=== PATIENT | male | born 1965 | race Caucasian/White ===

== ENCOUNTER 2016-09-13 23:37 | Emergency (ER) | payer MEDICARE, MEDICAID ==
--- NOTE | 2016-09-14 | ED ---
Substance Abuse/Use - HPI Summary HPI Summary: Patient presents for evaluation of acute alcohol intoxication. Patient was at the [facility] and intoxicated so EMS was called. He was drinking to be intoxicated, which he claims to be a near daily occurence. He otherwise feels well. No allev factors attempted. Denies headache, trauma, chest/back/abd pain. - History Of Current Complaint Chief Complaint: EDSubstanceAbuse Stated Complaint: ALCOHOL CONSUMPTION Time Seen by Provider: 09/13/16 23:50 Hx Obtained From: Patient, EMS Timing Of Abuse: Daily Associated Signs And Symptoms: Negative Related Hx: Drug/Alcohol Last Used @ - Prior to arrival - Allergies/Home Medications Allergies/Adverse Reactions: Allergies Allergy/AdvReac Type Severity Reaction Status Date / Time No Known Allergies Allergy Verified 07/10/16 18:21 PMH/Surg Hx/FS Hx/Imm Hx Endocrine/Hematology History: Denies: Hx Diabetes Cardiovascular History: Denies: Hx Congestive Heart Failure, Hx Hypertension Respiratory History: Reports: Hx Asthma, Hx Chronic Obstructive Pulmonary Disease (COPD) GI History: Reports: Hx Gastroesophageal Reflux Disease History: Reports: Other Problems/Disorders - Song cath inserted in ED to monitor urine output post overdose of Vistaril Denies: Hx Renal Disease Musculoskeletal History: Reports: Hx Back Problems - Chronic low back pain Psychiatric History: Reports: Hx Anxiety, Hx Depression, Hx Inpatient Treatment , Hx Community Mental Health Tx, Hx Suicide Attempt, Hx Substance Abuse Denies: Hx Eating Disorder, Hx Panic Disorder, Hx Post Traumatic Stress Disorder, Hx Schizophrenia, Hx of Violent Episodes Against Others - Surgical History Surgery Procedure, Year, and Place: right elbow reconstruction Infectious Disease History: No Infectious Disease History: Denies: Hx Clostridium Difficile, Hx Hepatitis, Hx Human Immunodeficiency Virus (HIV), Hx of Known/Suspected MRSA, Hx Shingles, Hx Tuberculosis, Hx Known/ Suspected VRE, Hx Known/Suspected VRSA, History Other Infectious Disease, Traveled Outside the [place] in Last 30 Days - Family History Known Family History: Positive: None, Unknown, Other - bipolar disorder Family History: Denies family history of heart disease or diabetes. - Social History Alcohol Use: Daily Alcohol Amount: 12 pack tonight Substance Use Type: Reports: None Hx Tobacco Use: Yes - 1 ppd Smoking Status (MU): Heavy Every Day Tobacco Smoker Type: Cigarettes Amount Used/How Often: 1-1.5 ppd Have You Smoked in the Last Year: Yes Review of Systems Constitutional: Negative Negative: Fever, Chills Eyes: Negative Negative: Blurred Vision, Diplopia Cardiovascular: Negative Negative: Chest Pain Respiratory: Negative Negative: Shortness Of Breath Gastrointestinal: Negative Negative: Abdominal Pain All Other Systems Reviewed And Are Negative: Yes Physical Exam Triage Information Reviewed: Yes Vital Signs On Initial Exam: Initial Vitals Temp Pulse Resp BP Pulse Ox 97.2 F 85 20 91/74 92 09/13/16 23:42 09/13/16 23:42 09/13/16 23:42 09/13/16 23:42 09/13/16 23:42 Vital Signs Reviewed: Yes Appearance: Positive: Well-Appearing, No Pain Distress, Well-Nourished Skin: Positive: Warm, Skin Color Reflects Adequate Perfusion, Dry Eyes: Positive: Normal, EOMI, SUSI ENT: Positive: Normal ENT inspection, Hearing grossly normal, Pharynx normal Neck: Positive: Supple, Nontender Respiratory/Lung Sounds: Positive: Clear to Auscultation, Breath Sounds Present Cardiovascular: Positive: Normal, RRR Abdomen Description: Positive: Nontender, No Organomegaly, Soft Musculoskeletal: Positive: Normal, Strength/ROM Intact Neurological: Positive: Normal, Sensory/Motor Intact, Alert, Oriented to Person Place, Time, CN Intact II-III Diagnostics - Vital Signs Vital Signs Temp Pulse Resp BP Pulse Ox 09/13/16 23:42 97.2 F 85 20 91/74 92 - Laboratory Lab Statement: Any lab studies that have been ordered have been reviewed, and results considered in the medical decision making process. Course/Dx - Diagnoses Differential Diagnosis/HQI/PQRI: Positive: Alcohol Abuse, Other - Will re- evaluate later this morning, but is clinically intoxicated and in no acute distress without neuro deficits. [facility] clinically sober. If change to behavior, then CT head for occult ICH. Provider Diagnoses: Alcohol intoxication Discharge - Discharge Plan Condition: Stable Disposition: HOME Patient Education Materials: Alcohol Intoxication (ED) Referrals: Gertrudis Urrutia NP [Primary Care Provider] - If Needed
[2016-09-14] MEDS ORDERED: Al Hydrox/Mg Hydrox/Simet LIQ* 30 ML UDC PO ONE (06:01)
[2016-09-14] MEDS ORDERED: Ondansetron ODT TAB* 4 MG PO ONE (06:01)
[2016-09-14] MEDS ORDERED: Lidocaine 2% VISCOUS* 15 ML UDC PO ONE (06:01)
[2016-09-14 06:18] VITALS: BP 122/64
== END 2016-09-14 06:17 | disposition home or self-care (01) ==
LOC: ED 23:37
DX: F10.129 Alcohol abuse with intoxication, unspecified (principal); F17.210 Nicotine dependence, cigarettes, uncomplicated
CPT/HCPCS: 99282; A9270-GY

== ENCOUNTER 2016-09-15 15:13 | Emergency (ER) | payer MEDICARE, MEDICAID ==
[2016-09-15] MEDS ORDERED: Thiamine IV* 100 MG, Folic Acid IV* 1 MG, Multiple Vitamin IV ADULT* 10 ML in NS 0.9% 1... IV ONE (15:23)
[2016-09-15 16:01] LABS: Hematocrit 41 % (42-52); Hemoglobin 14.1 g/dl (14.0-18.0); Mean Corpuscular HGB Conc 34 g/dl (31-36); Mean Corpuscular Hemoglobin 32 pg (27-31); Mean Corpuscular Volume 94 fL (80-94); Mean Platelet Volume 8 um3 (7.4-10.4); Red Blood Count 4.35 10^6/ul (4.0-5.4); Red Cell Distribution Width 13 % (10.5-15); White Blood Count 10.5 10^3/ul (3.5-10.8)
[2016-09-15 16:06] LABS: Urine Bacteria Absent (Absent); Urine Bilirubin Negative (Negative); Urine Glucose Negative (Negative); Urine Nitrite Negative (Negative)
[2016-09-15 16:48] LABS: Albumin 4.1 g/dL (3.2-5.2); BUN/Creatinine Ratio 6.3 (8-20); Calcium 9.1 mg/dL (8.6-10.3); EGFR African American 132.7 (>60); EGFR Non-African American 103.2 (>60); Globulin 3.2 g/dL (2-4); Potassium 3.6 mmol/L (3.5-5.0); Total Bilirubin 0.4 mg/dL (0.2-1.0); Total Protein 7.3 g/dL (6.4-8.9)
[2016-09-15 17:36] LABS: Benzodiazepine Urine Screen None Detected (None Detect)
[2016-09-15] MEDS ORDERED: LORazepam INJ* 2 MG/ML 1 ML VIAL IV PUSH ONE (17:53)
[2016-09-15 21:25] VITALS: BP 130/75
[2016-09-15] MEDS ORDERED: Ondansetron INJ* 2 MG/ML VIAL IV ONE (23:40)
--- NOTE | 2016-09-15 23:48 | ED ---
Harrison Weber Billy, scribed for Juan Ordaz MD on 09/15/16 at 1605 . Substance Abuse/Use - HPI Summary HPI Summary: Patient is a 50 year-old male coming to [facility] visibly intoxicated. He states that he was trying to visit a rehabilitation clinic in [place] for alcoholism. He reports having had approximately a liter of whisky today. Positive nausea. He was seen in [facility] 2 days ago with a similar complaint. - History Of Current Complaint Chief Complaint: EDPsychosocial Stated Complaint: ETOH Time Seen by Provider: 09/15/16 15:17 Hx Obtained From: Patient Onset/Duration of Drug/ETOH Abuse: Minutes Ingestion History: Type/Name Of Drug - EtOH, Amount Ingested - 1 liter Overdose Characteristics: Oral Timing Of Abuse: Intermittent Severity Initially: Moderate Severity Currently: Moderate Aggravating Factor(s): Nothing Alleviating Factor(s): Nothing Associated Signs And Symptoms: Nausea - Allergies/Home Medications Allergies/Adverse Reactions: Allergies Allergy/AdvReac Type Severity Reaction Status Date / Time No Known Allergies Allergy Verified 07/10/16 18:21 PMH/Surg Hx/FS Hx/Imm Hx Endocrine/Hematology History: Denies: Hx Diabetes Cardiovascular History: Denies: Hx Congestive Heart Failure, Hx Hypertension Respiratory History: Reports: Hx Asthma, Hx Chronic Obstructive Pulmonary Disease (COPD) GI History: Reports: Hx Gastroesophageal Reflux Disease History: Reports: Other Problems/Disorders - Song cath inserted in ED to monitor urine output post overdose of Vistaril Denies: Hx Renal Disease Musculoskeletal History: Reports: Hx Back Problems - Chronic low back pain Psychiatric History: Reports: Hx Anxiety, Hx Depression, Hx Inpatient Treatment , Hx Community Mental Health Tx, Hx Suicide Attempt, Hx Substance Abuse Denies: Hx Eating Disorder, Hx Panic Disorder, Hx Post Traumatic Stress Disorder, Hx Schizophrenia, Hx of Violent Episodes Against Others - Surgical History Surgery Procedure, Year, and Place: right elbow reconstruction Infectious Disease History: No Infectious Disease History: Denies: Hx Clostridium Difficile, Hx Hepatitis, Hx Human Immunodeficiency Virus (HIV), Hx of Known/Suspected MRSA, Hx Shingles, Hx Tuberculosis, Hx Known/ Suspected VRE, Hx Known/Suspected VRSA, History Other Infectious Disease, Traveled Outside the [place] in Last 30 Days - Family History Known Family History: Positive: Other - bipolar disorder Negative: Cardiac Disease, Diabetes - Social History Alcohol Use: Daily Alcohol Amount: 12 pack tonight Substance Use Type: Reports: None Hx Tobacco Use: Yes - 1 ppd Smoking Status (MU): Heavy Every Day Tobacco Smoker Type: Cigarettes Amount Used/How Often: 1-1.5 ppd Have You Smoked in the Last Year: Yes Review of Systems Positive: Nausea Neurological: Other - EtOH intox All Other Systems Reviewed And Are Negative: Yes Physical Exam - Summary Physical Exam Summary: Vital signs: reviewed General: Patient is comfortable lying in stretcher with alcohol in his breath. HEENT: within normal limits Lungs: CTA B/L CVS: S1 & S2 present. No murmurs appreciated. ABDOMEN: Soft, non-tender. No signs of distention. No rebound no guarding, and no masses palpated. Bowel sounds are normal. EXTREMITIES: FROM in all major joints, no edema, no cyanosis or clubbing. NEURO: Alert and oriented x 3. No acute neurological deficits. Speech is normal and follows commands. SKIN: Dry and warm Triage Information Reviewed: Yes Vital Signs On Initial Exam: Initial Vitals Temp Pulse Resp BP Pulse Ox 98.2 F 94 20 107/77 84 09/15/16 15:14 09/15/16 15:14 09/15/16 15:14 09/15/16 15:14 09/15/16 15:14 Vital Signs Reviewed: Yes Diagnostics - Vital Signs Vital Signs Temp Pulse Resp BP Pulse Ox 09/15/16 15:14 98.2 F 94 20 107/77 84 - Laboratory Lab Results: Lab Results 09/15/16 09/15/16 Range/Units 15:50 15:50 WBC 10.5 (3.5-10.8) 10^3/ul RBC 4.35 (4.0-5.4) 10^6/ul Hgb 14.1 (14.0-18.0) g/dl Hct 41 L (42-52) % MCV 94 (80-94) fL MCH 32 H (27-31) pg MCHC 34 (31-36) g/dl RDW 13 (10.5-15) % Plt Count 210 (150-450) 10^3/ul MPV 8 (7.4-10.4) um3 Neut % (Auto) 73.4 (38-83) % Lymph % (Auto) 12.8 L (25-47) % Elk % (Auto) 11.8 H (1-9) % Eos % (Auto) 0.4 (0-6) % Baso % (Auto) 1.6 (0-2) % Absolute Neuts (auto) 7.7 (1.5-7.7) 10^3/ul Absolute Lymphs (auto) 1.3 (1.0-4.8) 10^3/ul Absolute Monos (auto) 1.2 H (0-0.8) 10^3/ul Absolute Eos (auto) 0 (0-0.6) 10^3/ul Absolute Basos (auto) 0.2 (0-0.2) 10^3/ul Absolute Nucleated RBC 0.01 10^3/ul Nucleated RBC % 0.1 Urine Color Colorless Urine Appearance Clear Urine pH 6.0 (5-9) Ur Specific [place] 1.002 L (1.010-1.030) Urine Protein Negative (Negative) Urine Ketones Negative (Negative) Urine Blood 1+ H (Negative) Urine Nitrate Negative (Negative) Urine Bilirubin Negative (Negative) Urine Urobilinogen Negative (Negative) Ur Leukocyte Esterase Negative (Negative) Urine WBC (Auto) Trace(0-5/hpf) (Absent) Urine RBC (Auto) Trace(0-2/hpf) (Absent) Urine Bacteria Absent (Absent) Urine Glucose Negative (Negative) Result Diagrams: 09/15/16 15:50 09/15/16 15:50 Lab Statement: Any lab studies that have been ordered have been reviewed, and results considered in the medical decision making process. Course/Dx - Course Assessment/Plan: Patient is a 50 year-old male coming to [facility] visibly intoxicated. He states that he was trying to visit a rehabilitation clinic in [place] for alcoholism. He reports having had approximately a liter of whisky today. Positive nausea. He was seen in [facility] 2 days ago with a similar complaint. Bloodwork WNL except for Hct 41, chloride 98, glucose 166. UA shows no UTI and serum alcohol is 332 at 1550 today. In the ED course, patient was given banana bag, Zofran for nausea, and 1mg ativan for agitation. At this point , he is hemodynamically stable, A&Ox3. He is at normal cognition and ambulation. He has normal gait, therefore he will be discharged to follow-up with PCP. He was given instructions how to get to detox as an outpatient. - Diagnoses Differential Diagnosis/HQI/PQRI: Positive: Alcohol Abuse, Anxiety, Other - Alcohol intoxication Provider Diagnoses: Alcohol intoxication Discharge - Discharge Plan Condition: Stable Disposition: HOME Patient Education Materials: Alcohol Intoxication (ED), Abuse of Alcohol (ED) Referrals: Gertrudis Urrutia NP [Primary Care Provider] - The documentation as recorded by the Harrison lira Billy accurately reflects the service I personally performed and the decisions made by me, Juan Ordaz MD.
[2016-09-15] MEDS ORDERED: Omeprazole CAP* 20 MG PO ONE (23:49)
== END 2016-09-16 00:30 | disposition home or self-care (01) ==
LOC: ED 15:13
DX: F10.129 Alcohol abuse with intoxication, unspecified (principal)
CPT/HCPCS: 36415; 80053; 80307; 80320; 81003; 81015; 85025; 96374; 96375; 99283; A9270-GY; G0480; J2060; J2405; J3411

== ENCOUNTER 2016-10-22 19:03 | Inpatient (IN) | payer MEDICARE, MEDICAID ==
[2016-10-22 20:01] LABS: Hematocrit 43 % (42-52); Hemoglobin 14.7 g/dl (14.0-18.0); Mean Corpuscular HGB Conc 34 g/dl (31-36); Mean Corpuscular Hemoglobin 32 pg (27-31); Mean Corpuscular Volume 93 fL (80-94); Mean Platelet Volume 8 um3 (7.4-10.4); Red Blood Count 4.59 10^6/ul (4.0-5.4); Red Cell Distribution Width 13 % (10.5-15); White Blood Count 12.1 10^3/ul (3.5-10.8)
[2016-10-22 20:18] LABS: ALT 44 U/L (7-52); AST 29 U/L (13-39); Albumin 4.6 g/dL (3.2-5.2); Alkaline Phosphatase 97 U/L (34-104); Anion Gap 12 mmol/L (2-11); BUN/Creatinine Ratio 5.3 (8-20); Blood Urea Nitrogen 4 mg/dL (6-24); CO2 Carbon Dioxide 28 mmol/L (22-32); Calcium 9.6 mg/dL (8.6-10.3); Chloride 95 mmol/L (101-111); EGFR African American 140.8 (>60); EGFR Non-African American 109.5 (>60); Globulin 3.4 g/dL (2-4); Glucose 158 mg/dL (70-100); Potassium 3.7 mmol/L (3.5-5.0); Sodium 135 mmol/L (133-145)
[2016-10-22 20:37] LABS: Urine Bacteria Absent (Absent); Urine Bilirubin Negative (Negative); Urine Glucose Negative (Negative); Urine Nitrite Negative (Negative)
[2016-10-22 20:44] LABS: Acetaminophen < 15 mcg/mL; Alcohol 262 mg/dL (<10); Salicylate < 2.50 mg/dL (<30)
[2016-10-22] MEDS ORDERED: Mouth Piece, Nicotine* 1 EACH CARTRIDGE INH PRN (20:47)
[2016-10-22] MEDS ORDERED: Nicotine Inhaler* 10 MG AMP INH PRN (20:47)
[2016-10-22 20:54] LABS: TSH (Thyroid Stimulating Horm) 1.86 mcIU/mL (0.34-5.60)
[2016-10-22] MEDS ORDERED: Mouth Piece, Nicotine* 1 EACH CARTRIDGE ONE (21:00)
[2016-10-22] MEDS ORDERED: Nicotine Inhaler* 10 MG AMP ONE (21:02)
[2016-10-22 21:09] LABS: Benzodiazepine Urine Screen None Detected (None Detect)
[2016-10-23] MEDS ORDERED: Ondansetron ODT TAB* 4 MG ONE (03:36)
[2016-10-23] MEDS ORDERED: Ondansetron ODT TAB* 4 MG PO ONE (03:38)
[2016-10-23] MEDS ORDERED: LORazepam TAB(*) 1 MG PO ONE (03:42)
[2016-10-23] MEDS ORDERED: Mouth Piece, Nicotine* 1 EACH CARTRIDGE INH ONE (04:00)
--- NOTE | 2016-10-23 06:43 | ED ---
IRoss,Karon, scribed for Mook Patel MD on 10/22/16 at 2207 . Psychiatric Complaint - HPI Summary HPI Summary: LEVEL 5 CAVEAT secondary to EtOH intoxication. This 50 y/o male presents to ED after referral from Mental Health worker for alcohol intoxication and request for detox. No SI/HI reported. Pt is reported to have drank 5 beers and john. PMHx is significant for known alcoholism, GERD , anxiety, depression, and asthma. FHx is positive for bipolar disorder to mother and sister. - History Of Current Complaint Chief Complaint: EDMentalHealth Time Seen by Provider: 10/22/16 20:10 Hx Obtained From: Patient Onset/Duration: Gradual Onset Timing: Constant Character: Stuporous Aggravating Factor(s): Nothing Alleviating Factor(s): Nothing Associated Signs And Symptoms: Positive: Negative Related History: Positive For: Prior Psychiatric Issues Has Suicidal: Denies: Thoughts Has Homicidal: Denies: Thoughts - Allergies/Home Medications Allergies/Adverse Reactions: Allergies Allergy/AdvReac Type Severity Reaction Status Date / Time No Known Allergies Allergy Verified 07/10/16 18:21 PMH/Surg Hx/FS Hx/Imm Hx Endocrine/Hematology History: Denies: Hx Diabetes Cardiovascular History: Denies: Hx Congestive Heart Failure, Hx Hypertension Respiratory History: Reports: Hx Asthma, Hx Chronic Obstructive Pulmonary Disease (COPD) GI History: Reports: Hx Gastroesophageal Reflux Disease History: Reports: Other Problems/Disorders - Song cath inserted in ED to monitor urine output post overdose of Vistaril Denies: Hx Renal Disease Musculoskeletal History: Reports: Hx Back Problems - Chronic low back pain Psychiatric History: Reports: Hx Anxiety, Hx Depression, Hx Inpatient Treatment , Hx Community Mental Health Tx, Hx Suicide Attempt, Hx Substance Abuse Denies: Hx Eating Disorder, Hx Panic Disorder, Hx Post Traumatic Stress Disorder, Hx Schizophrenia, Hx of Violent Episodes Against Others - Surgical History Surgery Procedure, Year, and Place: right elbow reconstruction Infectious Disease History: No Infectious Disease History: Denies: Hx Clostridium Difficile, Hx Hepatitis, Hx Human Immunodeficiency Virus (HIV), Hx of Known/Suspected MRSA, Hx Shingles, Hx Tuberculosis, Hx Known/ Suspected VRE, Hx Known/Suspected VRSA, History Other Infectious Disease, Traveled Outside the [place] in Last 30 Days - Family History Known Family History: Positive: Other - bipolar disorder Negative: Cardiac Disease, Diabetes Family History: Denies family history of heart disease or diabetes. - Social History Alcohol Use: Daily Alcohol Amount: 12 pack tonight Substance Use Type: Reports: None Substance Use Comment - Amount & Last Used: UNKNOWN- PATIENT ARRIVED ETOH Hx Tobacco Use: Yes - 1 ppd Smoking Status (MU): Heavy Every Day Tobacco Smoker Type: Cigarettes Amount Used/How Often: 1-1.5 ppd Have You Smoked in the Last Year: Yes Review of Systems - ROS Summary Review of Systems Summary: LEVEL 5 CAVEAT secondary to EtOH intoxication Negative: Fever Positive: Other - EtOH intoxication. Stuporous All Other Systems Reviewed And Are Negative: No Physical Exam Triage Information Reviewed: Yes Vital Signs On Initial Exam: Initial Vitals Temp Pulse Resp BP Pulse Ox 96.8 F 90 20 131/93 95 10/22/16 19:04 10/22/16 19:04 10/22/16 19:04 10/22/16 19:04 10/22/16 19:04 Vital Signs Reviewed: Yes Completion Of Physical Exam Limited Due To: Other - EtOH intoxication Appearance: Positive: Well-Appearing, No Pain Distress Skin: Positive: Warm, Skin Color Reflects Adequate Perfusion, Dry Head/Face: Positive: Normal Head/Face Inspection Neck: Positive: Supple, Nontender Respiratory/Lung Sounds: Positive: Breath Sounds Present Cardiovascular: Positive: Pulses are Symmetrical in both Upper and Lower Extremities Musculoskeletal: Positive: Strength/ROM Intact Neurological: Positive: Sensory/Motor Intact Psychiatric: Positive: Other - Stuporous Diagnostics - Vital Signs Vital Signs Temp Pulse Resp BP Pulse Ox 10/22/16 19:04 96.8 F 90 20 131/93 95 - Laboratory Lab Results: Lab Results 10/22/16 10/22/16 10/22/16 Range/Units 19:50 19:50 20:25 WBC 12.1 H (3.5-10.8) 10^3/ul RBC 4.59 (4.0-5.4) 10^6/ul Hgb 14.7 (14.0-18.0) g/dl Hct 43 (42-52) % MCV 93 (80-94) fL MCH 32 H (27-31) pg MCHC 34 (31-36) g/dl RDW 13 (10.5-15) % Plt Count 226 (150-450) 10^3/ul MPV 8 (7.4-10.4) um3 Neut % (Auto) 57.0 (38-83) % Lymph % (Auto) 30.1 (25-47) % [place] % (Auto) 9.1 H (1-9) % Eos % (Auto) 2.9 (0-6) % Baso % (Auto) 0.9 (0-2) % Absolute Neuts (auto) 6.9 (1.5-7.7) 10^3/ul Absolute Lymphs (auto) 3.6 (1.0-4.8) 10^3/ul Absolute Monos (auto) 1.1 H (0-0.8) 10^3/ul Absolute Eos (auto) 0.4 (0-0.6) 10^3/ul Absolute Basos (auto) 0.1 (0-0.2) 10^3/ul Absolute Nucleated RBC 0.01 10^3/ul Nucleated RBC % 0.1 Sodium 135 (133-145) mmol/L Potassium 3.7 (3.5-5.0) mmol/L Chloride 95 L (101-111) mmol/L Carbon Dioxide 28 (22-32) mmol/L Anion Gap 12 H (2-11) mmol/L BUN 4 L (6-24) mg/dL Creatinine 0.76 (0.67-1.17) mg/dL Est GFR ( Amer) 140.8 (>60) Est GFR (Non-Af Amer) 109.5 (>60) BUN/Creatinine Ratio 5.3 L (8-20) Glucose 158 H (70-100) mg/dL Calcium 9.6 (8.6-10.3) mg/dL Total Bilirubin 0.40 (0.2-1.0) mg/dL AST 29 (13-39) U/L ALT 44 (7-52) U/L Alkaline Phosphatase 97 (34-104) U/L Total Protein 8.0 (6.4-8.9) g/dL Albumin 4.6 (3.2-5.2) g/dL Globulin 3.4 (2-4) g/dL Albumin/Globulin Ratio 1.4 (1-3) TSH 1.86 (0.34-5.60) mcIU/mL Urine Color Yellow Urine Appearance Clear Urine pH 5.0 (5-9) Ur Specific [place] 1.012 (1.010-1.030) Urine Protein 2+(100 mg/dl) H (Negative) Urine Ketones Negative (Negative) Urine Blood 1+ H (Negative) Urine Nitrate Negative (Negative) Urine Bilirubin Negative (Negative) Urine Urobilinogen Negative (Negative) Ur Leukocyte Esterase Negative (Negative) Urine WBC (Auto) Absent (Absent) Urine RBC (Auto) Trace(0-2/hpf) (Absent) Ur Squamous Epith Cells Present H (Absent) Urine Bacteria Absent (Absent) Hyaline Casts Present H (Absent) Granular Casts Present H (Absent) Urine Glucose Negative (Negative) Salicylates < 2.50 (<30) mg/dL Urine Opiates Screen (None Detect) Acetaminophen < 15 mcg/mL Ur Barbiturates Screen (None Detect) Ur Phencyclidine Scrn (None Detect) Ur Amphetamines Screen (None Detect) U Benzodiazepines Scrn (None Detect) Urine Cocaine Screen (None Detect) U Cannabinoids Screen (None Detect) Serum Alcohol 262 H (<10) mg/dL 10/22/16 Range/Units 20:25 WBC (3.5-10.8) 10^3/ul RBC (4.0-5.4) 10^6/ul Hgb (14.0-18.0) g/dl Hct (42-52) % MCV (80-94) fL MCH (27-31) pg MCHC (31-36) g/dl RDW (10.5-15) % Plt Count (150-450) 10^3/ul MPV (7.4-10.4) um3 Neut % (Auto) (38-83) % Lymph % (Auto) (25-47) % [place] % (Auto) (1-9) % Eos % (Auto) (0-6) % Baso % (Auto) (0-2) % Absolute Neuts (auto) (1.5-7.7) 10^3/ul Absolute Lymphs (auto) (1.0-4.8) 10^3/ul Absolute Monos (auto) (0-0.8) 10^3/ul Absolute Eos (auto) (0-0.6) 10^3/ul Absolute Basos (auto) (0-0.2) 10^3/ul Absolute Nucleated RBC 10^3/ul Nucleated RBC % Sodium (133-145) mmol/L Potassium (3.5-5.0) mmol/L Chloride (101-111) mmol/L Carbon Dioxide (22-32) mmol/L Anion Gap (2-11) mmol/L BUN (6-24) mg/dL Creatinine (0.67-1.17) mg/dL Est GFR ( Amer) (>60) Est GFR (Non-Af Amer) (>60) BUN/Creatinine Ratio (8-20) Glucose (70-100) mg/dL Calcium (8.6-10.3) mg/dL Total Bilirubin (0.2-1.0) mg/dL AST (13-39) U/L ALT (7-52) U/L Alkaline Phosphatase (34-104) U/L Total Protein (6.4-8.9) g/dL Albumin (3.2-5.2) g/dL Globulin (2-4) g/dL Albumin/Globulin Ratio (1-3) TSH (0.34-5.60) mcIU/mL Urine Color Urine Appearance Urine pH (5-9) Ur Specific [place] (1.010-1.030) Urine Protein (Negative) Urine Ketones (Negative) Urine Blood (Negative) Urine Nitrate (Negative) Urine Bilirubin (Negative) Urine Urobilinogen (Negative) Ur Leukocyte Esterase (Negative) Urine WBC (Auto) (Absent) Urine RBC (Auto) (Absent) Ur Squamous Epith Cells (Absent) Urine Bacteria (Absent) Hyaline Casts (Absent) Granular Casts (Absent) Urine Glucose (Negative) Salicylates (<30) mg/dL Urine Opiates Screen None detected (None Detect) Acetaminophen mcg/mL Ur Barbiturates Screen None detected (None Detect) Ur Phencyclidine Scrn None detected (None Detect) Ur Amphetamines Screen None detected (None Detect) U Benzodiazepines Scrn None detected (None Detect) Urine Cocaine Screen None detected (None Detect) U Cannabinoids Screen None detected (None Detect) Serum Alcohol (<10) mg/dL Result Diagrams: 10/22/16 19:50 10/22/16 19:50 Lab Statement: Any lab studies that have been ordered have been reviewed, and results considered in the medical decision making process. Course/Dx - Course Assessment/Plan: admit mhu stable - Differential Dx/Clinical Impression Provider Diagnosis: Mental health problem, Alcohol intoxication - Physician Notifications Patient Is Medically Stable For: Psych Evaluation - at 0400 AM Discharge - Discharge Plan Condition: Stable Disposition: ADMITTED TO [facility] Referrals: Gertrudis Urrutia NP [Primary Care Provider] - The documentation as recorded by the Ross lira Soohyun accurately reflects the service I personally performed and the decisions made by me, oMok Patel MD.
[2016-10-23] MEDS ORDERED: Nicotine GUM* 2 MG PO PRN (07:28)
[2016-10-23] MEDS ORDERED: Al Hydrox/Mg Hydrox/Simet LIQ* 30 ML UDC PO PRN (07:28)
[2016-10-23] MEDS ORDERED: Mouth Piece, Nicotine* 1 EACH CARTRIDGE INH SCH (07:28)
[2016-10-23] MEDS ORDERED: Albuterol HFA INHALER* 8 gm MDI INH PRN (07:29)
[2016-10-23] MEDS ORDERED: Omeprazole CAP* 20 MG PO PRN (07:29)
[2016-10-23] MEDS ORDERED: Omeprazole CAP* 20 MG PO ONE (08:41)
[2016-10-23] MEDS ORDERED: Nicotine Inhaler* 10 MG AMP INH PRN (12:22)
[2016-10-23] MEDS: Nicotine Inhaler* 10 MG AMP INH PRN (15:22)
[2016-10-23] MEDS ORDERED: LORazepam TAB(*) WAM SCALE 0-6 MG PO SCH (23:00)
[2016-10-24] MEDS: hydrOXYzine HCL TAB* 50 MG PO SCH ×5 (02:30→21:33)
[2016-10-24] MEDS: Acetaminophen TAB* 325 MG PO PRN (02:39)
[2016-10-24] MEDS: celeCOXIB CAP* 100 MG PO SCH ×4 (07:51→21:34)
[2016-10-24] MEDS: Vitamin THERAPEUTIC TAB PO SCH ×2 (07:52→10:02)
[2016-10-24] MEDS: Nicotine Inhaler* 10 MG AMP INH PRN ×2 (11:10→16:15)
[2016-10-24] MEDS: Nicotine PATCH 21 MG/24 HR* PATCH TRANSDERM SCH (16:16)
[2016-10-24] MEDS: Omeprazole CAP* 20 MG PO SCH (21:34)
[2016-10-24] MEDS: Nicotine Patch Removal NOTE FOLLOW UP SCH (21:35)
--- NOTE | 2016-10-24 22:39 | HP ---
PSYCHIATRIC HISTORY AND PHYSICAL: DATE OF ADMISSION: 10/23/16 JUSTIFICATION FOR ADMISSION: The patient is in need of 24-hour supervision and care due to severe alcohol dependence with signs and symptoms of withdraw. He is in need of detoxification and medical stabilization. CHIEF COMPLAINT: "I was supposed to go to [facility] on , but I didn't go." HISTORY OF PRESENT ILLNESS: The patient is a 50-year-old single white male with a history of developmental delay as well as alcoholism, who is well-known to our unit from a prior admission in July 2016 who now returns to the hospital on a voluntary basis intoxicated and requesting detoxification so that he can get into a rehab. My understanding is that he was discharged from the [facility] in [place], [place] approximately 1 week ago and the plan was for him to go to the [facility] in [place] and his intake was established for 10/19/16. Instead, however, the patient promptly began drinking again and missed his intake appointment. He is now affectively homeless. On exam, he states that he wants to find an apartment with his section 8 certificate because this expires in December. He has multiple complaints about his casey saw operator, Mr. Sujit Gillespie, who he complaints is not helping him with his housing needs. My understanding is that Mr. Gillespie has been encouraging the patient to get a technical account representative payee to prevent him from spending all of his money on alcohol, but the patient is adamantly opposed to this. The patient is enrolled in the [employer] and he has a case operator through that agency as well. At this time, the patient is denying suicidal or homicidal ideations. He denies auditory or visual hallucinations; however, he was demonstrating clear signs of alcohol withdrawal in the emergency room and it was felt that he was not medically stable for discharge. PAST PSYCHIATRIC HISTORY: The patient was most recently admitted to Psychiatry in July 2016 under the service of Dr. Kar Rae. In the past, he has received outpatient treatment at [facility], but apparently has very poor attendance record there. I am looking at his past diagnoses in our system and they include alcohol use disorder, borderline intellectual functioning, substance- induced mood disorder, cannabis use disorder, and he has at least one prior admission with a suicidal ingestion of hydroxyzine. Apparently that occurred in July 2015. There is also a remote hospitalization at [facility] in February of 2001 for alcohol detoxification. SUBSTANCE ABUSE HISTORY: He uses alcohol heavily having consumed over a case of beer in 2 days. He reports approximately 15 lifetime rehabilitations. He has denied history of problematic withdrawal seizures or DTs. He previously smoked cannabis 2 to 3 times per month, but states that he has discontinued this. He denies any past history of IV drug use or other illicit drugs. In the past, he has used AA meeting, but he denies recent attendance to these. His alcohol level was 262 in the emergency room and his urine drug screen was completely negative. PAST FAMILY HISTORY: He denies any psychiatric illness or suicides in his family. PAST MEDICAL HISTORY: Significant for chronic back pain and gastroesophageal reflux disease. CURRENT MEDICATIONS: Include: 1. Celebrex 100 mg p.o. b.i.d. 2. Hydroxyzine 50 mg p.o. b.i.d. 3. Omeprazole 40 mg daily. 4. He also takes albuterol as needed for wheezing. ALLERGIES: He has no known drug allergies. SOCIAL HISTORY: The patient grew up in [place], raised by both parents. He was one of 5 male offspring. He required special education and did graduate from high school. He has never worked on a regular basis. He is identified as heterosexual, but is never and has no children. He is not currently in any relationship. Currently, he is homeless. He does have issues around financial and housing stability due to poor choices made in the context of alcohol abuse. LEGAL HISTORY: He indicates that he has been arrested approximately 20 times for such things as DWIs and steeling beer. He denies any history of violence towards others. REVIEW OF SYSTEMS: The patient states that he is withdrawing from nicotine and having nicotine cravings due to this. Other than this, he denies headaches, double vision, sore throat, cough, chest pain, or difficulty breathing. He denies abdominal pain, nausea, vomiting, diarrhea, or constipation. He denies difficulty ambulating, rashes, enlarged lymph nodes, fevers, or changes in weight. PHYSICAL EXAMINATION VITAL SIGNS: Blood pressure 122/73, heart rate 65, respiratory rate 16, oxygen saturations are 96% on room air, temperature is 98.1 degrees Fahrenheit. HEENT: Head is normocephalic, atraumatic. NECK: Supple. CHEST: Clear to auscultation bilaterally. CARDIAC: Exam reveals normal heart sounds. ABDOMEN: Soft, obese, and nontender. SKIN: Warm and dry. EXTREMITIES: Reveal no sign of edema. NEUROLOGICAL: He is grossly intact with no focal deficits. MENTAL STATUS EXAMINATION: The patient is a middle-aged white male, with a slightly disconjugate gaze. He looks shraddha and somewhat older than his stated appearance. He is dressed in blue scrubs with moderate grooming. He is cooperative, makes fairly good eye contact and is somewhat easy to establish a rapport with. Speech is simplistic with a limited vocabulary; however, I do not know any pressured speech or alterations in tone. Mood is euthymic with a full affect. Thought process is linear. Thought content is significant for his desire to get into a long-term substance abuse rehab. He is denying suicidal or homicidal ideations. He denies auditory or visual hallucinations. Insight and judgment appears to be limited given the fact that he missed his intake at the [facility] prior to admission. Cognitively, he is awake and alert with what is obviously low intellect by virtue of his history of developmental delay and simplistic vocabulary. LABORATORY DATA: On CBC, his white blood cell is slightly elevated at 12.1. Monocyte percentage is elevated at 9.1 and absolute monocytes are elevated at 1.1. On CMP, his chloride is low at 95, BUN low at 4, glucose elevated at 158. Urinalysis shows 2+ protein and 1+ blood. Urine drug screen is negative for all substances tested and his alcohol level was 262. DIAGNOSES: Delano I: Alcohol use disorder. Delano II: Borderline intellectual functioning. Delano III: Chronic back pain and gastroesophageal reflux disease. Delano IV: Severe housing stressors. Delano V: Currently 50. IMPRESSION: The patient is a 50-year-old single white developmentally delayed male with history of alcoholism who was brought in voluntarily seeking detoxification, so that he can get into substance abuse rehab. My understanding is that he is homeless and has financial difficulties due to misutilizing his disability money. PLAN: The patient is admitted to the adult behavioral health unit where he is placed on q.15-minute checks for his own safety. We have also introduced the [place] protocol in the event that he shows signs or symptoms of alcohol withdrawal. Our social services manager will contact [facility] to see if they still have an available bed for him and I will encourage him to seek intermediate term inpatient substance abuse rehabilitation. We have also the topic of him receiving a technical account representative payee, which he is somewhat resistant to, but we can revisit that idea tomorrow. In the meantime, he is strongly encouraged to avail himself of all milieu activities including individual and group psychotherapies. We will continue his hydroxyzine, albuterol, omeprazole, and Celebrex treatment and await acceptance at a rehab facility. [id number]/[facility] #: [id number] KEISHA
[2016-10-25] MEDS: Nicotine Inhaler* 10 MG AMP INH PRN ×2 (07:28→19:09)
[2016-10-25] MEDS: Vitamin THERAPEUTIC TAB PO SCH (09:21)
[2016-10-25] MEDS: celeCOXIB CAP* 100 MG PO SCH ×2 (09:22→20:08)
[2016-10-25] MEDS: Omeprazole CAP* 20 MG PO SCH (09:22)
[2016-10-25] MEDS: Nicotine PATCH 21 MG/24 HR* PATCH TRANSDERM SCH (09:22)
[2016-10-25] MEDS: hydrOXYzine HCL TAB* 50 MG PO SCH ×2 (09:22→20:07)
[2016-10-25] MEDS ORDERED: Omeprazole CAP* 20 MG PO PRN (11:44)
--- NOTE | 2016-10-25 11:50 | PN ---
Subjective - Subjective Service Type: 65453 Hosp care 15 min low complexity Subjective: The patient continues to deny SI, HI, AH or VH. He has been accepted by the [facility] inpatient program, pending bed availability tomorrow, and he is in agreement with this. He has not shown any physiologic signs/symptoms of alcohol withdrawal and has not had any behavioral problems on our unit. Objective - Appearance Appearance: Well Developed/Nourished Dysmorphic Features: No Hygiene: Normal Grooming: Fairly Well Kept - Behavior Psychomotor Activities: Normal Exhibits Abnormal Movement: No - Attitude and Relatedness Attitude and Relatedness: Cooperative Eye Contact: Fair - Speech Quality: Unpressured Latencies: Normal Quantity: Appropriate - Mood Patient's Decription of Mood: "Okay" - Affect Observed Affect: Fair Affect Consistent with: Euthymia - Thought Process Patient's Thought Process: Coherent, Goal Directed Thought Content: No Passive Wish, No Suicidal Planning, No Homicidal Ideation, No Paranoid Ideation - Sensorium Experiencing Hallucinations: No, Sensorium is Clear Type of Hallucinations: Visual: No, Auditory: No, Command: No - Level of Consciousness Level of Consciousness: Alert Orientation: Yes Intact, Yes Orientated to Time, Yes Orientated to Place, Yes Orientated to Person - Impulse Control Impulse Control: Tenuous - Insight and Judgement Insight and Judgement: Fair - Group Participation Particating in Group Activities: No - Medication Management Medication Management Adherence: Yes Assessment - Assessment Merits Inpatient Hospitalization: Pending Safe DC Plan Inpatient DSM-IV Dx: Alcohol Use DO Clinical Impression: 50 y.o. single, developmentally delayed, alcoholic white male with a history of admissions for alcohol detoxification arrives voluntarily seeking admission due to fears of going into alcohol withdrawal one week after relapsing on ETOH. Plan - Plan Treatment Plan: Name: EARL TEIXEIRA Birthdate: 1965 [id number] The patient shows no signs/symptoms of ETOH withdrawal. He is pending transfer to [facility] inpatient rehab tomorrow, (10/26). No acute issues today. Continued Medication Management: Continue Outpt Medication Medications: Current Medications Acetaminophen (Tylenol Tab*) 650 mg PO Q4H PRN PRN Reason: PAIN or TEMP > 101 F Last Admin: 10/24/16 02:39 Dose: 650 mg Al Hydrox/Mg Hydrox/Simethicone (Maalox Plus*) 30 ml PO Q4H PRN PRN Reason: INDIGESTION Albuterol (Ventolin Hfa Inhaler*) 2 puff INH Q4H PRN PRN Reason: SHORTNESS OF BREATH Celecoxib (Celebrex Cap*) 100 mg PO BID [facility] Last Admin: 10/25/16 09:22 Dose: 100 mg Device (Nicotine Mouth Piece*) 1 each INH .[facility] Hydroxyzine HCl (Atarax Tab*) 50 mg PO BID [facility] Last Admin: 10/25/16 09:22 Dose: 50 mg Multivitamins (Theragran Tab*) 1 tab PO DAILY [facility] Last Admin: 10/25/16 09:21 Dose: 1 tab Nicotine (Nicotine Inhaler*) 10 mg INH Q2H PRN PRN Reason: CRAVING Last Admin: 10/25/16 07:28 Dose: 10 mg Nicotine (Nicotine Patch 21 Mg/24 Hr*) 1 patch TRANSDERM Q24HR [facility] Last Admin: 10/25/16 09:22 Dose: 1 patch Nicotine Polacrilex (Nicotine Gum*) 2 mg PO Q2H PRN PRN Reason: CRAVING Omeprazole (Prilosec Cap*) 40 mg PO BID PRN PRN Reason: INDIGESTION Pharmacy Profile Note (Nicotine Patch Removal Note*) 1 note FOLLOW UP 2100 [facility] Last Admin: 10/24/16 21:35 Dose: 1 note - Discharge Plan Discharge Plan: Drug/Alcohol Rehab
[2016-10-25] MEDS: Acetaminophen TAB* 325 MG PO PRN (20:07)
[2016-10-25] MEDS: Nicotine Patch Removal NOTE FOLLOW UP SCH (20:44)
[2016-10-26] MEDS: Nicotine Inhaler* 10 MG AMP INH PRN ×2 (09:53→13:53)
[2016-10-26] MEDS: Nicotine PATCH 21 MG/24 HR* PATCH TRANSDERM SCH (09:54)
[2016-10-26] MEDS: Vitamin THERAPEUTIC TAB PO SCH (09:54)
[2016-10-26] MEDS: hydrOXYzine HCL TAB* 50 MG PO SCH (09:55)
[2016-10-26] MEDS: celeCOXIB CAP* 100 MG PO SCH (09:55)
[2016-10-26 11:46] VITALS: BP 135/77
[2016-10-26] MEDS ORDERED: Naltrexone (NF) 50 MG TAB PO SCH (12:00)
--- NOTE | 2016-10-27 00:19 | TRS ---
TRANSFER SUMMARY: DATE OF ADMISSION: 10/23/16 DATE OF TRANSFER: 10/26/16 DISCHARGE DIAGNOSES: As follows: Norris I: Alcohol withdrawal, alcohol use disorder. Norris II: Borderline intellectual functioning. Norris III: Chronic back pain, chronic obstructive pulmonary disease, and gastroesophageal reflux disease. Norris IV: Severe housing stressors. Norris V: At the time of admission was 52 and at the time of discharge is 60. CONDITION AT THE TIME OF DISCHARGE: Stable. The patient is calm and cooperative. He is future oriented, stating that he is wanting to get clean and sober. He is also looking for help with the Social Works Department at [facility] in getting section 8 housing for which he already has a voucher. He denies any thoughts of harming himself or others and he is showing no physiological evidence of alcohol withdrawal. He has been accepted for transfer to the [facility] program at their inpatient facility in [place], [place] and he is pending transportation to that clinic at 2:30 this afternoon. MENTAL STATUS EXAM: The patient is middle aged white male with a slightly dysconjugate gaze who looks older than his stated appearance. He is dressed in blue hospital scrubs with moderate grooming. He is cooperative, makes good eye contact, and is easy to establish a rapport with. Speech is simplistic with a limited vocabulary. Mood is euthymic with a full affect. Thought process is linear. Thought content is significant for his desire to go through the [facility]ing and to see if he can find housing. He is denying suicidal or homicidal ideations and he denies auditory or visual hallucinations. Insight and judgment appears to be limited given that he missed his recent [facility] intake appointment one week ago. Cognitively, he is awake and alert with what is obviously a low intellect by virtue of his history of developmental delay and his simplistic vocabulary. DISCHARGE INSTRUCTIONS: For the patient are as follows: A. Medications: He is taking Celebrex 100 mg p.o. b.i.d., hydroxyzine 50 mg p.o. b.i.d., naltrexone 50 mg p.o. every day, albuterol 1 puff every 2 hours as needed for wheezing, and omeprazole 20 mg p.o. b.i.d. B. Diet: Regular. C. Activities: As tolerated. The patient is strongly encouraged to abstain from tobacco products; however, he is declining the offer of continued nicotine replacement therapy in the community, indicating his preference to continue smoking cigarettes for the time being. D. Followup Care: The patient will be a direct transfer to the [facility] inpatient rehab in [place], [place]. His transportation is set to arrive at 2:30 p.m. on the afternoon of discharge. HOSPITAL COURSE: As follows: Part A: Reason for Admission: The patient is a 50-year-old single white male with a history developmental delay as well as alcoholism who is well known to our unit from a prior admission in July 2016, who now returns to the hospital on a voluntary basis, intoxicated, and requesting detoxification, so that he can get into rehab. My understanding is that he was discharged recently from the [facility] in [place], [place] approximately 1 week ago and the plan was for him to go to the [facility] program in [place]. However, his intake appointment, which was established on 10/19/16 , was missed due to the fact that he began drinking again and he is now effectively homeless. On exam, he stated that, he wanted to find an apartment with the section 8 housing certificate because this was said to in December. He had numerous complaints about his embedded case manager, "Mr. Sujit Gillespie," who he complains is not helping him with his housing needs. My understanding is that Mr. Gillespie has been encouraging the patient to get a safety representative payee to prevent him from spending all of his money on alcohol. The patient; however, is adamantly opposed to this and continue to be upon this hospitalization. The patient is also enrolled in the [employer] system and he has a trimming caser through that agency as well. At this time, the patient is denying suicidal or homicidal ideation. He is denying auditory or visual hallucinations; however, he was demonstrating clear signs of alcohol withdrawal in the emergency room and it was felt that he was not medically stable for discharge. Part B: Psychiatric Treatment Rendered: The patient was admitted to the Adult Behavioral Health Unit, where he was placed on q.30-minute checks for his own safety. We also placed him on the [facility] protocol for signs and symptoms of withdrawal, likely due to the fact that he had only been drinking a short time in the community prior to presentation. He did not display any signs of alcohol withdrawal and no lorazepam was necessary during this hospitalization. We did continue all of his other medications and his packet was referred to [facility]. It happened that they had an open and available bed on the date of discharge and he is therefore set for transfer. The patient continued to deny suicidal or homicidal ideations throughout his hospitalization and he was always safe on scheduled checks and never indicated to us any problems in terms of his behavior or his dangerousness to himself or others. At this time, we are discharging Mr. Fischer and we wish him the best in the terms of the safe and sober future. [id number]/[facility] #: [id number] MTDGray
== END 2016-10-26 15:00 | DRG 897 ==
LOC: ED 19:03 → BSU 10-23 18:53
PROVIDERS: ADMIT Internal Medicine; ATTEND Psychiatry & Neurology Psychiatry
PROC: HZ2ZZZZ Detoxification Services for Substance Abuse Treatment (ICD-10-PCS; principal; 2016-10-23)
DX: F10.239 Alcohol dependence with withdrawal, unspecified (principal); F32.9 Major depressive disorder, single episode, unspecified; F10.229 Alcohol dependence with intoxication, unspecified; K21.9 Gastro-esophageal reflux disease without esophagitis; F41.9 Anxiety disorder, unspecified; J45.909 Unspecified asthma, uncomplicated; J44.9 Chronic obstructive pulmonary disease, unspecified; G89.29 Other chronic pain; M54.5 Low back pain; F17.210 Nicotine dependence, cigarettes, uncomplicated; R41.83 Borderline intellectual functioning; R62.50 Unspecified lack of expected normal physiological development in childhood; Y90.8 Blood alcohol level of 240 mg/100 ml or more; Z81.8 Family history of other mental and behavioral disorders; Z59.0 Homelessness
CPT/HCPCS: 36415; 80053; 80307; 80320; 80329; 81003; 81015; 84443; 85025; 93005; 99222; 99231; 99238; A9270-GY; G0480

== ENCOUNTER 2017-04-23 09:16 | Emergency (ER) | payer MEDICARE, MEDICAID ==
[2017-04-23 10:02] VITALS: BP 145/98
--- NOTE | 2017-04-23 10:43 | UC ---
Throat Pain/Nasal Lino HPI - HPI Summary HPI Summary: FIVE DAYS OF SINUS CONGESTION, COUGH. WHEEZING, HAS COPD. NO FEVER. - History of Current Complaint Hx Obtained From: Patient Onset/Duration: Gradual Onset, Lasting Weeks Severity: Moderate Cough: Nonproductive Associated Signs & Symptoms: Positive: Hoarseness, Sinus Discomfort, Nasal Discharge - Epiglottits Risk Factors Epiglottis Risk Factors: Negative <Riley Miller - Last Filed: 04/23/17 10:39> <Blaire Palacios - Last Filed: 04/23/17 10:45> - History of Current Complaint Chief Complaint: UCRespiratory Stated Complaint: Allergies Time Seen by Provider: 04/23/17 10:13 - Allergies/Home Medications Allergies/Adverse Reactions: Allergies Allergy/AdvReac Type Severity Reaction Status Date / Time No Known Allergies Allergy Verified 04/23/17 09:57 PMH/Surg Hx/FS Hx/Imm Hx Previously Healthy: Yes - Surgical History Surgical History: Yes Surgery Procedure, Year, and Place: right elbow reconstruction - Family History Known Family History: Positive: None, Unknown, Other - bipolar disorder Negative: Cardiac Disease, Diabetes Family History: Denies family history of heart disease or diabetes. - Social History Occupation: Employed Full-time Lives: With Family Alcohol Use: Weekly Alcohol Amount: 12 pack tonight Substance Use Type: None Substance Use Comment - Amount & Last Used: UNKNOWN- PATIENT ARRIVED ETOH Smoking Status (MU): Heavy Every Day Tobacco Smoker Type: Cigarettes Amount Used/How Often: 1-1.5 ppd Have You Smoked in the Last Year: Yes Household Exposure Type: Cigarettes Cessation Counseling: Patient Advised to Stop - Immunization History Most Recent Influenza Vaccination: 2014 Most Recent Tetanus Shot: UTD Most Recent Pneumonia Vaccination: 2014 <Riley Miller - Last Filed: 04/23/17 10:39> Review of Systems Constitutional: Negative Skin: Negative Eyes: Negative ENT: Nasal Discharge, Sinus Congestion, Sinus Pain/Tenderness Respiratory: Cough Cardiovascular: Negative Gastrointestinal: Negative Genitourinary: Negative Motor: Negative Neurovascular: Negative Musculoskeletal: Negative Neurological: Negative Psychological: Negative Is Patient Immunocompromised?: No All Other Systems Reviewed And Are Negative: Yes <Riley Miller - Last Filed: 04/23/17 10:39> Physical Exam Triage Information Reviewed: Yes Appearance: Well-Appearing, No Pain Distress, Well-Nourished Vital Signs: Initial Vital Signs Temp 97.8 F 04/23/17 09:58 Pulse 90 04/23/17 09:58 Resp 16 04/23/17 09:58 BP 145/98 04/23/17 09:58 Pulse Ox 96 04/23/17 09:58 Vital Signs Reviewed: Yes Eye Exam: Normal ENT: Positive: Hearing grossly normal, Nasal congestion, TM bulging, TM dull Dental Exam: Normal Neck exam: Normal Neck: Positive: Supple, Nontender, No Lymphadenopathy Respiratory Exam: Other - COUGH Respiratory: Positive: Normal breath sounds, No respiratory distress, No accessory muscle use, Wheezing Cardiovascular Exam: Normal Cardiovascular: Positive: RRR, No Murmur, Pulses Normal, Brisk Capillary Refill Abdominal Exam: Normal Musculoskeletal Exam: Normal Musculoskeletal: Positive: Strength Intact Neurological Exam: Normal Psychological Exam: Normal Psychological: Positive: Normal Response To Family Skin Exam: Normal <Riley Miller - Last Filed: 04/23/17 10:39> Vital Signs: Initial Vital Signs Temp 97.8 F 04/23/17 09:58 Pulse 90 04/23/17 09:58 Resp 16 04/23/17 09:58 BP 145/98 04/23/17 09:58 Pulse Ox 96 04/23/17 09:58 <Blaire Palacios - Last Filed: 04/23/17 10:45> Throat Pain/Nasal Course/Dx - Differential Dx/Diagnosis Differential Diagnosis/HQI/PQRI: Pharyngitis, Sinusitis, Tonsillitis, URI Provider Diagnoses: SINUSITIS; COPD; UPPER RESPIRATORY INFECTION <Riley Miller - Last Filed: 04/23/17 10:39> Discharge <Riley Miller - Last Filed: 04/23/17 10:39> <Blaire Palacios - Last Filed: 04/23/17 10:45> - Discharge Plan Condition: Stable Disposition: HOME Prescriptions: Albuterol HFA INHALER* [Ventolin HFA Inhaler*] 1 - 2 puff INH Q4H PRN #1 mdi PRN Reason: Wheezing Amoxicillin/Clavulanate TAB* [Augmentin TAB 875*] 875 mg PO BID #20 tab Benzonatate CAP* [Tessalon 100 MG CAP*] 100 mg PO TID PRN #15 cap PRN Reason: Cough Patient Education Materials: Sinusitis (ED), COPD (Chronic Obstructive Pulmonary Disease) (ED), Bronchospasm (ED) Referrals: Gertrudis Urrutia FINISH FILER [Primary Care Provider] - Attestation Statement User Type: Provider - I was available for consult. This patient was seen by the [facility]. The patient was not presented to, seen by, or examined by me. -Kina <Blaire Palacios - Last Filed: 04/23/17 10:45>
== END 2017-04-23 10:42 | disposition home or self-care (01) ==
LOC: UCEAST 09:16
DX: J06.9 Acute upper respiratory infection, unspecified (principal); F17.210 Nicotine dependence, cigarettes, uncomplicated; J32.9 Chronic sinusitis, unspecified; J44.9 Chronic obstructive pulmonary disease, unspecified
CPT/HCPCS: 99212; G0463

== ENCOUNTER 2017-04-26 | Emergency (ER) | payer MEDICARE, MEDICAID ==
[2017-04-26] MEDS ORDERED: NS 0.9% 1000 ML* 1,000 ML IV ONE (01:48)
[2017-04-26] MEDS ORDERED: methylPREDNISolone 125 MG* 2 ML VIAL IV ONE (01:48)
[2017-04-26] MEDS ORDERED: Albuterol/Ipratropium NEB.SOL* Albuterol 2.5 MG/Ipratropium 0.5 MG 3 ML INH ONE (01:48)
[2017-04-26 02:16] LABS: Hematocrit 40 % (42-52); Hemoglobin 13.6 g/dl (14.0-18.0); Mean Corpuscular HGB Conc 34 g/dl (31-36); Mean Corpuscular Hemoglobin 30 pg (27-31); Mean Corpuscular Volume 90 fL (80-94); Mean Platelet Volume 8 um3 (7.4-10.4); Red Cell Distribution Width 14 % (10.5-15)
[2017-04-26 02:29] LABS: Albumin 3.9 g/dL (3.2-5.2); BUN/Creatinine Ratio 24.1 (8-20); Calcium 8.9 mg/dL (8.6-10.3); EGFR African American 119.9 (>60); EGFR Non-African American 93.3 (>60); Globulin 3.2 g/dL (2-4); Potassium 3.6 mmol/L (3.5-5.0); Total Bilirubin 0.5 mg/dL (0.2-1.0); Total Protein 7.1 g/dL (6.4-8.9)
[2017-04-26 02:31] LABS: Troponin I 0.01 ng/mL (<0.04)
[2017-04-26 05:10] VITALS: BP 143/80
--- NOTE | 2017-04-26 07:58 | ED ---
Rodriguez Weber Rebecca, scribed for Kilo Trujillo MD on 04/26/17 at 0143 . Shortness of Breath - HPI Summary HPI Summary: Pt is a 51 y/o M BIBA who presents to ED c/o SOB characterized as dyspnea at rest with wheezing. Sx worsened tonight at approximately 2000, when he was unable to get to sleep. Sx aggravated and alleviated by nothing, unchanged by Albuterol inhaler and Abx. Additionally c/o productive cough, producing white sputum. Cough is as prevalent as it was prior to starting Tx. Recent Dx of sinusitis, URI and COPD 3 days ago by [facility], where he was given Rx for a Ventolin inhaler, Augmentin and Tessalon. He has not been able to picker operator the Ventolin inhaler as the store did not fill the Rx yet. Does not use O2 at home. - History of Current Complaint Chief Complaint: EDRespiratoryDistress Time Seen by Provider: 04/26/17 01:31 Hx Obtained From: Patient Onset/Duration: Still Present, Worse Since - tonight at 1999 Dyspnea At: Rest Aggrevating Factors: Nothing Alleviating Factors: Nothing Associated Signs & Symptoms: Cough (Productive), Wheezing - Allergy/Home Medications Allergies/Adverse Reactions: Allergies Allergy/AdvReac Type Severity Reaction Status Date / Time No Known Allergies Allergy Verified 04/23/17 09:57 PMH/Surg Hx/FS Hx/Imm Hx Endocrine/Hematology History: Denies: Hx Diabetes Cardiovascular History: Denies: Hx Congestive Heart Failure, Hx Hypertension Respiratory History: Reports: Hx Asthma, Hx Chronic Obstructive Pulmonary Disease (COPD) GI History: Reports: Hx Gastroesophageal Reflux Disease History: Reports: Other Problems/Disorders - Song cath inserted in ED to monitor urine output post overdose of Vistaril Denies: Hx Renal Disease Musculoskeletal History: Reports: Hx Back Problems - Chronic low back pain Psychiatric History: Reports: Hx Anxiety, Hx Depression, Hx Inpatient Treatment , Hx Community Mental Health Tx, Hx Suicide Attempt, Hx Substance Abuse Denies: Hx Eating Disorder, Hx Panic Disorder, Hx Post Traumatic Stress Disorder, Hx Schizophrenia, Hx of Violent Episodes Against Others - Surgical History Surgery Procedure, Year, and Place: right elbow reconstruction - Immunization History Date of Tetanus Vaccine: unk Date of Influenza Vaccine: unk Infectious Disease History: No Infectious Disease History: Denies: Hx Clostridium Difficile, Hx Hepatitis, Hx Human Immunodeficiency Virus (HIV), Hx of Known/Suspected MRSA, Hx Shingles, Hx Tuberculosis, Hx Known/ Suspected VRE, Hx Known/Suspected VRSA, History Other Infectious Disease, Traveled Outside the [place] in Last 30 Days - Family History Known Family History: Positive: Other - bipolar disorder Negative: Cardiac Disease, Diabetes Family History: Denies family history of heart disease or diabetes. - Social History Alcohol Use: Weekly Alcohol Amount: 12 pack tonight Substance Use Type: Reports: None Hx Tobacco Use: Yes - 1 ppd Smoking Status (MU): Heavy Every Day Tobacco Smoker Type: Cigarettes Amount Used/How Often: 1-1.5 ppd Have You Smoked in the Last Year: Yes Review of Systems Negative: Fever Positive: Shortness Of Breath, Cough, Other - Wheezing All Other Systems Reviewed And Are Negative: Yes Physical Exam - Summary Physical Exam Summary: The patient is well-nourished in no acute distress and in no acute pain. The skin is warm and dry and skin color reflects adequate perfusion. HEENT: The head is normocephalic and atraumatic. The pupils are equal and reactive. The conjunctivae are clear and without drainage. Nares are patent and without drainage. Mouth reveals moist mucous membranes and poor dentition and the throat is without erythema and exudate. The external ears are intact. The ear canals are patent and without drainage. The tympanic membranes are intact. Neck is supple with full range of motion and non-tender. There are no carotid bruits. Respiratory: Chest is non-tender. Breath sounds are symmetrical and equal with diffuse rhonchi and wheezing to auscultation. Cardiovascular: Hear is regular rate and rhythm. There is no murmur or rub auscultated. There is no peripheral edema and pulses are symmetrical and equal. Abdomen: The abdomen is soft and non-tender. There are normal bowel sounds heard in all four quadrants and there is no organomegaly palpated. Musculoskeletal: There is no back pain noted. Extremities are non-tender with full range of motion. There is good capillary refill of 2 seconds. There is no peripheral edema or calf tenderness elicited. Neurological: Patient is alert and oriented to person, place and time. Psychiatric: The patient has an appropriate affect and does not exhibit any anxiety or depression. Triage Information Reviewed: Yes Vital Signs On Initial Exam: Initial Vitals Temp Pulse Resp BP Pulse Ox 98.3 F 59 22 143/93 92 04/26/17 00:23 04/26/17 00:23 04/26/17 00:23 04/26/17 00:23 04/26/17 00:23 Vital Signs Reviewed: Yes Diagnostics - Vital Signs Vital Signs Temp Pulse Resp BP Pulse Ox 04/26/17 00:23 98.3 F 59 22 143/93 92 - Laboratory Lab Results: Lab Results 04/26/17 04/26/17 04/26/17 Range/Units 02:04 02:04 02:04 WBC 9.0 (3.5-10.8) 10^3/ul RBC 4.50 (4.0-5.4) 10^6/ul Hgb 13.6 L (14.0-18.0) g/dl Hct 40 L (42-52) % MCV 90 (80-94) fL MCH 30 (27-31) pg MCHC 34 (31-36) g/dl RDW 14 (10.5-15) % Plt Count 192 (150-450) 10^3/ul MPV 8 (7.4-10.4) um3 Neut % (Auto) 57.1 (38-83) % Lymph % (Auto) 29.2 (25-47) % Fisher % (Auto) 11.2 H (1-9) % Eos % (Auto) 1.9 (0-6) % Baso % (Auto) 0.6 (0-2) % Absolute Neuts (auto) 5.1 (1.5-7.7) 10^3/ul Absolute Lymphs (auto) 2.6 (1.0-4.8) 10^3/ul Absolute Monos (auto) 1.0 H (0-0.8) 10^3/ul Absolute Eos (auto) 0.2 (0-0.6) 10^3/ul Absolute Basos (auto) 0.1 (0-0.2) 10^3/ul Absolute Nucleated RBC 0 10^3/ul Nucleated RBC % 0 Sodium 138 (133-145) mmol/L Potassium 3.6 (3.5-5.0) mmol/L Chloride 103 (101-111) mmol/L Carbon Dioxide 28 (22-32) mmol/L Anion Gap 7 (2-11) mmol/L BUN 21 (6-24) mg/dL Creatinine 0.87 (0.67-1.17) mg/dL Est GFR ( Amer) 119.9 (>60) Est GFR (Non-Af Amer) 93.3 (>60) BUN/Creatinine Ratio 24.1 H (8-20) Glucose 144 H (70-100) mg/dL Lactic Acid 0.8 (0.5-2.0) mmol/L Calcium 8.9 (8.6-10.3) mg/dL Total Bilirubin 0.50 (0.2-1.0) mg/dL AST 25 (13-39) U/L ALT 50 (7-52) U/L Alkaline Phosphatase 104 (34-104) U/L Troponin I 0.01 (<0.04) ng/mL B-Natriuretic Peptide ( - 100) pg/mL Total Protein 7.1 (6.4-8.9) g/dL Albumin 3.9 (3.2-5.2) g/dL Globulin 3.2 (2-4) g/dL Albumin/Globulin Ratio 1.2 (1-3) 04/26/17 Range/Units 02:04 WBC (3.5-10.8) 10^3/ul RBC (4.0-5.4) 10^6/ul Hgb (14.0-18.0) g/dl Hct (42-52) % MCV (80-94) fL MCH (27-31) pg MCHC (31-36) g/dl RDW (10.5-15) % Plt Count (150-450) 10^3/ul MPV (7.4-10.4) um3 Neut % (Auto) (38-83) % Lymph % (Auto) (25-47) % Fisher % (Auto) (1-9) % Eos % (Auto) (0-6) % Baso % (Auto) (0-2) % Absolute Neuts (auto) (1.5-7.7) 10^3/ul Absolute Lymphs (auto) (1.0-4.8) 10^3/ul Absolute Monos (auto) (0-0.8) 10^3/ul Absolute Eos (auto) (0-0.6) 10^3/ul Absolute Basos (auto) (0-0.2) 10^3/ul Absolute Nucleated RBC 10^3/ul Nucleated RBC % Sodium (133-145) mmol/L Potassium (3.5-5.0) mmol/L Chloride (101-111) mmol/L Carbon Dioxide (22-32) mmol/L Anion Gap (2-11) mmol/L BUN (6-24) mg/dL Creatinine (0.67-1.17) mg/dL Est GFR ( Amer) (>60) Est GFR (Non-Af Amer) (>60) BUN/Creatinine Ratio (8-20) Glucose (70-100) mg/dL Lactic Acid (0.5-2.0) mmol/L Calcium (8.6-10.3) mg/dL Total Bilirubin (0.2-1.0) mg/dL AST (13-39) U/L ALT (7-52) U/L Alkaline Phosphatase (34-104) U/L Troponin I (<0.04) ng/mL B-Natriuretic Peptide 32 ( - 100) pg/mL Total Protein (6.4-8.9) g/dL Albumin (3.2-5.2) g/dL Globulin (2-4) g/dL Albumin/Globulin Ratio (1-3) Result Diagrams: 04/26/17 02:04 04/26/17 02:04 Lab Statement: Any lab studies that have been ordered have been reviewed, and results considered in the medical decision making process. - Radiology CXR Xray Interpretation: No Acute Changes - COPD changes on CXR Radiology Interpretation Completed By: ED Physician Re-Evaluation - Re-Evaluation First Eval Re-Evaluation Time: 04:54 Change: Improved Comment: Upon re-evaluation, wheezing has decresaed though he still has rhonchi throughout. Advised that he continue with the Augmentin and explained that Prednisone will be added to the regiment. He understands and agrees. Course/Dx - Course Assessment/Plan: Pt is a 51 y/o M BIBA who presents to ED c/o SOB characterized as dyspnea at rest with wheezing. Sx worsened tonight at approximately 2000, when he was unable to get to sleep. Sx aggravated and alleviated by nothing, unchanged by Albuterol inhaler and Abx. Additionally c/o productive cough, producing white sputum. Cough is as prevalent as it was prior to starting Tx. Recent Dx of sinusitis, URI and COPD 3 days ago by [facility], where he was given Rx for a Ventolin inhaler, Augmentin and Tessalon. He has not been able to picker operator the Ventolin inhaler as the store did not fill the Rx yet. Does not use O2 at home. CXR reveals COPD changes. In the ED course, pt received Duoneb Tx, Solu -Medrol and fluids which improved sx. Upon reevaluation, his wheezing has improved. Pt will be D/C to home with Dx of acute bronchitis and COPD with Rx for Prednisone, directions to continue Augmentin and a follow up with his PCP. He understands and agrees. Elevated BP noted and advised to f/u with PCP. - Diagnoses Provider Diagnoses: Acute bronchitis, COPD (chronic obstructive pulmonary disease) Discharge - Discharge Plan Condition: Stable Disposition: HOME Prescriptions: predniSONE TAB* [Deltasone TAB*] 60 mg PO DAILY #15 tab Patient Education Materials: Acute Bronchitis (ED), COPD (Chronic Obstructive Pulmonary Disease) (ED) Referrals: Gertrudis Urrutia, PEANUT SHAKER [Primary Care Provider] - 3 Days Additional Instructions: Continue taking the Augmentin as directed. Additionally, start taking the Prednisone as prescribed. The documentation as recorded by the Rodriguez lira Rebecca accurately reflects the service I personally performed and the decisions made by , Kilo Trujillo MD.
--- NOTE | 2017-04-26 08:02 | RAD ---
HISTORY: Shortness of breath, cough, pneumonia COMPARISONS: October 09, 2015 VIEWS: 4: Frontal dual-energy and lateral views of the chest. FINDINGS: CARDIOMEDIASTINAL SILHOUETTE: The cardiomediastinal silhouette is normal. MILLICENT: The millicent are normal. PLEURA: The costophrenic angles are sharp. No pleural abnormalities are noted. LUNG PARENCHYMA: There is hyperinflation with flattening of the diaphragm and expansion of the AP diameter of the chest. ABDOMEN: The upper abdomen is clear. There is no subphrenic gas. BONES AND SOFT TISSUES: No bone or soft tissue abnormalities are noted. OTHER: None. IMPRESSION: HYPERINFLATION, CONSISTENT WITH COPD. NO ACTIVE CARDIOPULMONARY DISEASE.
== END 2017-04-26 05:30 | disposition home or self-care (01) ==
LOC: ED
DX: J20.9 Acute bronchitis, unspecified (principal); J44.9 Chronic obstructive pulmonary disease, unspecified; R06.02 Shortness of breath; R05 Cough; R06.2 Wheezing; F17.210 Nicotine dependence, cigarettes, uncomplicated
CPT/HCPCS: 36415; 71020; 80053; 83605; 83880; 84484; 85025; 94640; 96374; 99283; A9270-GY; J2930

== ENCOUNTER 2019-04-14 10:25 | Emergency (ER) | payer MEDICARE, MEDICAID ==
--- NOTE | 2019-04-14 10:45 | ED ---
Back Pain - HPI Summary HPI Summary: This patient is a 53 year old male presenting to [facility] with a chief complaint of back pain since two days ago. He states he has a history of chronic back pain with a disc issue. He states it is in the lower back into his tailbone and the pain radiates into his bilateral hips and lower extremities. He states the pain is in the same location as his chronic pain but is worse and the chronic pain typically has not radiated the same way. Patient states he is ambulatory with the pain. He rates it 7/10 in severity. Patient also reports headache. He states he was given pain medication a year ago and ran out about 7 months ago. He reports a Hx of COPD and diabetes. - History of Current Complaint Chief Complaint: EDBackInjuryPain Stated Complaint: BACK PAIN PER EMS Time Seen by Provider: 04/14/19 10:32 Hx Obtained From: Patient Onset/Duration: Lasting Days Onset/Duration: Started Days Ago Pain Intensity: 7 Pain Scale Used: 0-10 Numeric - Allergies/Home Medications Allergies/Adverse Reactions: Allergies Allergy/AdvReac Type Severity Reaction Status Date / Time No Known Allergies Allergy Verified 04/14/19 10:33 PMH/Surg Hx/FS Hx/Imm Hx Endocrine/Hematology History: Reports: Hx Diabetes Cardiovascular History: Denies: Hx Congestive Heart Failure, Hx Hypertension Respiratory History: Reports: Hx Asthma, Hx Chronic Obstructive Pulmonary Disease (COPD) GI History: Reports: Hx Gastroesophageal Reflux Disease History: Reports: Other Problems/Disorders - Song cath inserted in ED to monitor urine output post overdose of Vistaril Denies: Hx Renal Disease Musculoskeletal History: Reports: Hx Back Problems - Chronic low back pain Psychiatric History: Reports: Hx Anxiety, Hx Depression, Hx Inpatient Treatment , Hx Community Mental Health Tx, Hx Suicide Attempt, Hx Substance Abuse Denies: Hx Eating Disorder, Hx Panic Disorder, Hx Post Traumatic Stress Disorder, Hx Schizophrenia, Hx of Violent Episodes Against Others - Surgical History Surgery Procedure, Year, and Place: right elbow reconstruction - Immunization History Date of Tetanus Vaccine: unk Date of Influenza Vaccine: unk Infectious Disease History: No Infectious Disease History: Denies: Hx Clostridium Difficile, Hx Hepatitis, Hx Human Immunodeficiency Virus (HIV), Hx of Known/Suspected MRSA, Hx Shingles, Hx Tuberculosis, Hx Known/ Suspected VRE, Hx Known/Suspected VRSA, History Other Infectious Disease, Traveled Outside the [place] in Last 30 Days - Family History Known Family History: Positive: Other - bipolar disorder Negative: Cardiac Disease, Diabetes Family History: Denies family history of heart disease or diabetes. - Social History Alcohol Use: Weekly Alcohol Amount: 12 pack tonight Substance Use Type: Reports: None Substance Use Comment - Amount & Last Used: UNKNOWN- PATIENT ARRIVED ETOH Hx Tobacco Use: Yes - 1 ppd Smoking Status (MU): Heavy Every Day Tobacco Smoker Type: Cigarettes Amount Used/How Often: 1-1.5 ppd Have You Smoked in the Last Year: Yes Review of Systems Negative: Fever Positive: Other - Back pain Positive: Headache All Other Systems Reviewed And Are Negative: Yes Physical Exam - Summary Physical Exam Summary: Appearance: The patient is well-nourished in no acute distress and in no acute pain. Skin: The skin is warm and dry, and skin color reflects adequate perfusion. HEENT: The head is normocephalic and atraumatic. The pupils are equal and reactive. The conjunctivae are clear and without drainage. Nares are patent and without drainage. Mouth reveals moist mucous membranes, and the throat is without erythema and exudate. The external ears are intact. The ear canals are patent and without drainage. The tympanic membranes are intact. Neck: The neck is supple with full range of motion and non-tender. There are no carotid bruits. There is no neck vein distension. Respiratory: Chest is non-tender. Lungs are clear to auscultation and breath sounds are symmetrical and equal. Cardiovascular: Heart is regular rate and rhythm. There is no murmur or rub auscultated. There is no peripheral edema and pulses are symmetrical and equal. Abdomen: The abdomen is soft and non-tender. There are normal bowel sounds heard in all four quadrants and there is no organomegaly palpated. Musculoskeletal: There is no back tenderness noted. Extremities are non-tender with full range of motion. There is good capillary refill. There is no peripheral edema or calf tenderness elicited. Neurological: Patient is alert and oriented to person, place and time. The patient has symmetrical motor strength in all four extremities. Cranial nerves are grossly intact. Deep tendon reflexes are symmetrical and equal in all four extremities. Psychiatric: The patient has an appropriate affect and does not exhibit any anxiety or depression. Triage Information Reviewed: Yes Vital Signs On Initial Exam: Initial Vitals Temp Pulse Resp BP Pulse Ox 98.1 F 84 16 150/95 96 04/14/19 10:29 04/14/19 10:29 04/14/19 10:29 04/14/19 10:29 04/14/19 10:29 Vital Signs Reviewed: Yes Diagnostics - Vital Signs Vital Signs Temp Pulse Resp BP Pulse Ox 04/14/19 10:29 98.1 F 84 16 150/95 96 - Laboratory Lab Statement: Any lab studies that have been ordered have been reviewed, and results considered in the medical decision making process. Back Pain Course/Dx - Course Course Of Treatment: Mr. Fischer is a bit of a difficult historian. He reports to me an exacerbation of his chronic low back pain. He denies any bowel or bladder changes or weakness. There is no focality to his exam. He is nontoxic in appearance with stable vitals. He is currently taking naltrexone and therefore I cannot give him any narcotic medication. He is a diabetic. I' m going to give him a 3 day course of prednisone as this is very cute since Sunday. I recommended that he take his blood sugars every day and contact Dalton Urrutia if he loses control. Otherwise she should follow-up with her to consider further imaging or physical therapy. - Diagnoses Provider Diagnoses: Exacerbation of chronic back pain Discharge ED - Sign-Out/Discharge Documenting (check all that apply): Patient Departure - Discharge Patient Received Moderate/Deep Sedation with Procedure: No - Discharge Plan Condition: Stable Disposition: HOME Prescriptions: predniSONE TAB* [Deltasone 20 MG TAB*] 60 mg PO DAILY #3 tab Patient Education Materials: Chronic Back Pain (DC) Referrals: Gertrudis Urrutia NP [Primary Care Provider] - 3 Days Additional Instructions: Return to ED with any new or worsening symptoms. Follow up with your primary care provider. Take your medication as prescribed. - Billing Disposition and Condition Condition: STABLE Disposition: Home - Attestation Statements Document Initiated by Rachid: Yes Documenting Scribe: Sony Hankins Provider For Whom Rachid is Documenting (Include Credential): Maury Grayson MD Scribe Attestation: Sony Weber, scribed for Maury Grayson MD on 04/14/19 at 1135. Scribe Documentation Reviewed: Yes Provider Attestation: The documentation as recorded by the scribe, Sony Beshara accurately reflects the service I personally performed and the decisions made by me, Maury Grayson MD Status of Scribe Document: Viewed
[2019-04-14 11:39] VITALS: BP 152/86
== END 2019-04-14 11:28 | disposition home or self-care (01) ==
LOC: ED 10:25
DX: G89.29 Other chronic pain (principal); M54.9 Dorsalgia, unspecified; E11.9 Type 2 diabetes mellitus without complications; J44.9 Chronic obstructive pulmonary disease, unspecified; K21.9 Gastro-esophageal reflux disease without esophagitis; F41.9 Anxiety disorder, unspecified; F32.9 Major depressive disorder, single episode, unspecified; F17.210 Nicotine dependence, cigarettes, uncomplicated; R51 Headache
CPT/HCPCS: 99282

== ENCOUNTER 2019-05-23 06:32 | Emergency (ER) | payer MEDICARE, MEDICAID ==
--- NOTE | 2019-05-23 06:38 | ED ---
Abdominal Pain/Male - HPI Summary HPI Summary: Pt. is a 53 y.o male who presents to the ER for worsening abd. pain. Pt. notes pain has been going on for weeks. Pt. states he feels he has a lot of "gas." Associated sxs of nausea and vomiting. Denies cp, sob, fever, urinary sxs, blood in stools. Past hx of GERD, HLD, DM, alcoholism. Pt. notes he has not drank ETOH in a few months. Sxs are moderate in severity. No current modifying factors. - History of Current Complaint Stated Complaint: ABD PAIN PER EMS Time Seen by Provider: 05/23/19 06:36 Hx Obtained From: Patient - Allergies/Home Medications Allergies/Adverse Reactions: Allergies Allergy/AdvReac Type Severity Reaction Status Date / Time No Known Allergies Allergy Verified 04/14/19 10:33 Home Medications: Home Medications Atorvastatin* [Lipitor 20 MG*] 20 mg PO BEDTIME 05/23/19 [History Confirmed ] Baclofen 5 mg PO Q8HR PRN 05/23/19 [History Confirmed 05/23/19] Calcium Polycarbophil [Fiber-Lax] 1 tab PO DAILY 05/23/19 [History Confirmed ] Fluticasone HFA 110 mcg(NF) [Flovent HFA 110 mcg(NF)] 2 puff INH BID 05/23/19 [ History Confirmed 05/23/19] Fluticasone NASAL SPRAY 50MCG* [Flonase NASAL SPRAY 50MCG*] 2 spray BOTH NARES DAILY 05/23/19 [History Confirmed 05/23/19] Gabapentin 800 mg PO TID 05/23/19 [History Confirmed 05/23/19] Lactobacillus Acidophilus [Acidophilus] 2 tab PO DAILY 05/23/19 [History Confirmed 05/23/19] Naproxen [Naproxen 500 mg tab] 1 tab PO BID PRN 05/23/19 [History Confirmed ] Omeprazole 40 mg PO DAILY 05/23/19 [History Confirmed 05/23/19] Ranitidine TAB (NF) [Zantac TAB (NF)] 300 mg PO BEDTIME 05/23/19 [History Confirmed 05/23/19] Tramadol HCl 50 mg PO Q6HR PRN 05/23/19 [History Confirmed 05/23/19] glipiZIDE TAB* [Glucotrol TAB*] 10 mg PO DAILY 05/23/19 [History Confirmed 05/23] hydrOXYzine HCL TAB* [Atarax TAB 50 MG *] 50 mg PO TID 05/23/19 [History Confirmed 05/23/19] PMH/Surg Hx/FS Hx/Imm Hx Previously Healthy: Yes Endocrine/Hematology History: Reports: Hx Diabetes Cardiovascular History: Denies: Hx Congestive Heart Failure, Hx Hypertension Respiratory History: Reports: Hx Asthma, Hx Chronic Obstructive Pulmonary Disease (COPD) GI History: Reports: Hx Gastroesophageal Reflux Disease History: Reports: Other Problems/Disorders - Song cath inserted in ED to monitor urine output post overdose of Vistaril Denies: Hx Renal Disease Musculoskeletal History: Reports: Hx Back Problems - Chronic low back pain Psychiatric History: Reports: Hx Anxiety, Hx Depression, Hx Inpatient Treatment , Hx Community Mental Health Tx, Hx Suicide Attempt, Hx Substance Abuse Denies: Hx Eating Disorder, Hx Panic Disorder, Hx Post Traumatic Stress Disorder, Hx Schizophrenia, Hx of Violent Episodes Against Others - Surgical History Surgery Procedure, Year, and Place: right elbow reconstruction - Immunization History Date of Tetanus Vaccine: unk Date of Influenza Vaccine: unk Infectious Disease History: Denies: Hx Clostridium Difficile, Hx Hepatitis, Hx Human Immunodeficiency Virus (HIV), Hx of Known/Suspected MRSA, Hx Shingles, Hx Tuberculosis, Hx Known/ Suspected VRE, Hx Known/Suspected VRSA, History Other Infectious Disease - Family History Known Family History: Positive: Other - bipolar disorder, Non-Contributory Negative: Cardiac Disease, Diabetes Family History: Denies family history of heart disease or diabetes. - Social History Occupation: Disabled Lives: Alone Alcohol Use: Weekly Alcohol Amount: 12 pack tonight Substance Use Type: Reports: None Substance Use Comment - Amount & Last Used: UNKNOWN- PATIENT ARRIVED ETOH Hx Tobacco Use: Yes - 1 ppd Smoking Status (MU): Heavy Every Day Tobacco Smoker Type: Cigarettes Amount Used/How Often: 1-1.5 ppd Have You Smoked in the Last Year: Yes Review of Systems Constitutional: Negative Negative: Fever Cardiovascular: Negative Negative: Palpitations, Chest Pain Respiratory: Negative Negative: Shortness Of Breath, Cough Positive: Abdominal Pain, Vomiting, Nausea. Negative: Diarrhea Genitourinary: Negative Negative: dysuria Skin: Negative Neurological: Negative All Other Systems Reviewed And Are Negative: Yes Physical Exam Triage Information Reviewed: Yes Vital Signs Reviewed: Yes Appearance: Positive: Well-Appearing - Pt. sitting up in bed in NAD. Skin: Positive: Warm, Dry Head/Face: Positive: Normal Head/Face Inspection Eyes: Positive: Normal, EOMI Neck: Positive: Supple Respiratory/Lung Sounds: Positive: Clear to Auscultation, Breath Sounds Present , Rhonchi Cardiovascular: Positive: Normal, RRR Abdomen Description: Positive: Other: - Obese, distended, diffuse tenderness on palpation. +BS. Musculoskeletal: Positive: Normal, Strength/ROM Intact Neurological: Positive: Normal, CN Intact II-III Psychiatric: Positive: Affect/Mood Appropriate Procedures - Sedation Patient Received Moderate/Deep Sedation with Procedure: No Diagnostics - Laboratory Result Diagrams: 05/23/19 07:05 05/23/19 07:05 Lab Statement: Any lab studies that have been ordered have been reviewed, and results considered in the medical decision making process. Abdominal Pain Male Course/Dx - Course Assessment/Plan: Pt. presenting with diffuse abd. pain and vomiting. BP elevated. Afebrile. Pt. given zofran and GI cocktail. Labs and ct pending. ECG done at 0639 shows a sinus rhythm of 88bpm, normal axis, no STEMI. CT negative for acute finding per radiology. Labs are unremarkable. On re-exam pt. feeling mildly better. He is tolerating PO fluids. Recommend GI referral for endoscopy for further evaluation of epigastric pain and belching. Pt. to call his pcp tomorrow for close f.u. Omeprazole rx. To return to ER if sxs change or worsen. - Diagnoses Differential Diagnosis/HQI/PQRI: Appendicitis, Bowel Obstruction, Constipation, Diverticulitis, Gall Bladder Disease, Pancreatitis Provider Diagnoses: Nausea & vomiting, Abdominal bloating Discharge ED - Sign-Out/Discharge Documenting (check all that apply): Patient Departure - Discharge Plan Condition: Improved Disposition: HOME Prescriptions: Omeprazole 40 mg PO DAILY #30 capsule. Ondansetron TAB* [Zofran 4 MG Tab*] 4 mg PO Q6H PRN #12 tab PRN Reason: Nausea Patient Education Materials: Gas and Bloating (ED), Chronic Abdominal Pain (ED) Referrals: Jaiden Mccracken DO [Doctor of Osteopathy] - Gertrudis Urrutia NP [Primary Care Provider] - Additional Instructions: Call your PCP today for a referral to GI for endoscopy for further evaluation Take omprazole as directed Avoid alcohol, NSAIDs, fatty/greasy foods Return to ER if symptoms change or worsen - Billing Disposition and Condition Condition: IMPROVED Disposition: Home
[2019-05-23] MEDS ORDERED: Ondansetron INJ* 2 MG/ML VIAL IV ONE (06:49)
[2019-05-23] MEDS ORDERED: NS 0.9% 1000 ML** 1,000 ML IV ONE (06:49)
--- OUTSIDE RECORDS SUMMARY | 2019-05-23 07:10 | XMS REPORT | Continuity of Care Document ---
:1965 External Reference #:[id number] Author Name Betty Henry NP (transmitted by agent of provider Regina Curry) Address [address] [place] [address] Care Team Providers Name Role Phone Gertrudis Urrutia NP - Family Care Team Information [employer] Manager [phone] Brown Monk MD - Ophthalmology Care Team Information [employer] Processing [employer] Manager Problems Active Problems Provider Date Chronic obstructive lung disease Stormy Evans M.D., FACP Onset: 11/10/2010 Anxiety state Stormy Evans M.D., FACP Onset: 11/10/2010 Low back pain Stormy Evans M.D., FACP Onset: 11/10/2010 Tobacco user Stormy Evans M.D., FACP Onset: 11/10/2010 Alcohol dependence Stormy Evans M.D., FACP Onset: 11/10/2010 Mental disorder Stormy Evans M.D., FACP Onset: 11/10/2010 Boil of scrotum Tim Naranjo NP Onset: 12/04/2016 Type 2 diabetes mellitus Abelardo Amado M.D. Onset: 08/01/2017 Social History Type Date Description Comments Sex Unknown ETOH Use Occasionally consumes alcohol Tobacco Use Start: Unknown Patient is a current 1 ppd, rolls his smoker, smokes every own cigarettes. day Recreational Drug Use Denies Drug Use Smoking Status Reviewed: 05/21/19 Patient is a current 1 ppd, rolls his smoker, smokes every own cigarettes. day Exercise Type/Frequency Does not exercise Allergies, Adverse Reactions, Alerts Description No Known Drug Allergies Medications Active Medications SIG Qnty Indications Ordering Date Provider Probiotic 1 by mouth every 90caps Betty Henry, 05/21/2019 Acidophilus day with yogurt LAB ANALYST Capsules Ranitidine 150 2 tablets at hour 90tabs Betty Henry, 05/21/2019 Maximum Strength of sleep as LAB ANALYST directed 150mg Tablets Fiber Complete take tablet daily 90tabs Betty Henry, 05/21/2019 with breakfast LAB ANALYST Tablets Tramadol HCL 1 - 2 tablets 60tabs M54.5 Gertrudis Urrutia, 04/29/2019 50mg three times daily N.P. Tablets as needed Fluticasone 2 sprays each 16gm J45.901 Gertrudis Varn, 04/29/2019 Propionate nostril daily as N.P. 50mcg/Act needed Suspension Baclofen take 1/2-1 tab 20tabs M54.5 Mehdi Carias NP 04/16/2019 10mg Tablets every 8 hours as needed for muscle spasm Glipizide ER One po daily 30tabs Gertrudis Urrutia, 11/04/2018 10mg N.P. Tablets ER 24HR Flovent HFA 2 puffs twice 12gm J45.901 Gertrudis Urrutia, 10/30/2018 daily N.P. 110mcg/Act Aerosol Ventolin HFA 1 to 2 inhalations 18units Gertrudis Urrutia, 05/22/2018 every 4 hours as N.P. 108(90Base) mcg/Act needed Aerosol Onetouch Ultra Blue test twice a day 100units E11.9 Gertrudis Urrutia, 2016 and as needed N.P. Strips Onetouch Ultrasoft test blood 2-3 a 100units E11.9 Gertrudis Urrutia, 2016 Lancets day or as needed N.P. Misc Onetouch Ultra Mini check cs twice 1units E11.9 Abelardo 08/01/2017 daily Yessy Amado w/Device Kit Atorvastatin Calcium take one tablet by 30tabs Gertrudis Urrutia, 04/16/2017 mouth at bedtime N.P. 20mg Tablets Celecoxib one by mouth twice 60caps M54.5 Gertrudis Urrutia, 04/06/2017 100mg a day N.P. Capsules Gabapentin Take One Tablet By 90tabs Gertrudis Urrutia, 03/08/2017 800mg Mouth Three Times N.P. Tablets A Day Omeprazole Take One Capsule 90caps Gertrudis Urrutia, 03/08/2017 40mg By Mouth Every Day N.P. Capsules Hydroxyzine HCL take one to two 60tabs F41.9 Gertrudis Ghada, 12/07/2010 50mg tablets by mouth N.P. Tablets three times a day as needed History Medications Fiber Choice 1 by mouth 90units Betty Henry NP 05/21/2019 - Prebiotic Fiber every day 05/21/2019 1.5gm Chewtabs Probiotic 1 by mouth Betty Henry NP 05/21/2019 - Acidophilus every day 05/18/2019 Capsules Prednisone 4 tablets by 40tabs J45.901 Gertrudis Urrutia, 04/29/2019 - 10mg mouth for 4 N.P. 05/20/2019 Tablets days,3 tablets by mouth for 4 days, 2 tablets by mouth for 4 days, 1 tablet by mouth for 4 days Benzonatate one by mouth 30caps J45.901 Gertrudis Urrutia, 04/29/2019 - 200mg three times N.P. 05/13/2019 Capsules daily as needed for cough Naproxen one po bid 60tabs M54.5 Gertrudis Urrutia, 04/29/2019 - 500mg N.P. 04/29/2019 Tablets Prednisone take 4 tab 20tabs M54.5 Mehdi Carias NP 04/16/2019 - 10mg daily x 2 days 04/23/2019 Tablets then 3 tab daily x 2 days, then 2 tab daily for 2 day, and 1 tab for 2 day. Immunizations CPT Code Status Date Vaccine Lot # [id number] Given 05/13/2018 Influenza Virus Vaccine, Quadrivalent, Split, Preservative Free 54445 Given 05/13/2018 Pneumococcal Conjugate Vaccine 13 Valent For Intramuscular Use 93504 Given 06/30/2014 Tdap - Tetanus/Diptheria/Acellular Pertussis 3p9cl Vital Signs Date Vital Result Comment 05/21/2019 9:01am Height 68.5 inches 5'8.50" Weight 218.00 lb Heart Rate 72 /min BP Systolic 132 mmHg BP Diastolic 80 mmHg O2 % BldC Oximetry 96 % BMI (Body Mass Index) 32.7 kg/m2 04/29/2019 2:43pm Height 68.5 inches 5'8.50" Weight 216.00 lb Heart Rate 77 /min BP Systolic 136 mmHg Ra sitting BP Diastolic 92 mmHg Ra sitting Body Temperature 98.7 F O2 % BldC Oximetry 94 % BMI (Body Mass Index) 32.4 kg/m2 Results Test Date Facility Test Result H/L Range Note Laboratory test 05/21/2019 [facility] Amylase <pending> finding [address] [place] [address] [phone] Lipase <pending> Erythrocyte Sed Rate <pending> Procedures Date Code Description Status 03/16/2017 [id number] Diabetic Retinal Eye Exam Completed Medical Devices Description No Information Available Encounters Type Date Location Provider Dx Diagnosis Office Visit 04/29/2019 [facility] Gertrudis Urrutia J45.901 Unspecified asthma 3:20p Medicine - [facility] N.P. with (acute) exacerbation M54.5 Low back pain Office Visit 04/16/2019 8:40a [facility] Mehdi Carias NP M54.5 Low back pain Medicine - [facility] Office Visit 11/20/2018 3:40p [facility] Gertrudis Urrutia, M54.5 Low back pain Medicine - [facility] N.P. F17.210 Nicotine dependence, cigarettes, uncomplicated Assessments Date Code Description Provider 05/21/2019 R10.11 Right upper quadrant pain Betty Henry NP 05/21/2019 R14.0 Abdominal distension (gaseous) Betty Henry NP 05/21/2019 R19.7 Diarrhea, unspecified Betty Henry NP 04/29/2019 J45.901 Unspecified asthma with (acute) exacerbation Gertrudis Varn, N.P. 04/29/2019 M54.5 Low back pain Gertrudis Varn, N.P. 04/16/2019 M54.5 Low back pain Mehdi Carias NP 11/20/2018 M54.5 Low back pain Gertrudis Varn, N.P. 11/20/2018 F17.210 Nicotine dependence, cigarettes, uncomplicated Gertrudis Varn, N.P. Plan of Treatment Future Appointment(s):06/18/2019 8:15 am - Betty Henry NP at [facility]lbgkcd[facility]uf[facility]05/16/2019 - Betty Henry NPR10.11 Right upper quadrant painR14.0 Abdominal distension (gaseous)R19.7 Diarrhea, unspecified Functional Status Description No Information Available Mental Status Description No Information Available Referrals Refer to Reason for Referral Status Appt Date Betty Henry NP Patient with epigastric pain, nausea, and Sent 05/21/2019 occasional vomiting referred for evaluation and treatment. [address] [place] [address] [phone]
--- OUTSIDE RECORDS SUMMARY | 2019-05-23 07:10 | XMS REPORT | Continuity of Care Document ---
:1965 External Reference #:[id number] Author Name Mehdi Carias NP (transmitted by agent of provider Alison Spring) Address [address], [place] [address] Care Team Providers Name Role Phone Lupe Howe MD - Internal Care Team Information Housing Inspectors [phone] Medicine Gertrudis Urrutia NP - Family Care Team Information Housing Inspectors [phone] Brown Monk MD - Ophthalmology Care Team Information Housing Inspectors Problems Active Problems Provider Date Chronic obstructive [...] Date Description Comments Sex Unknown ETOH Use Currently consumes alcohol 12 Beers every 2 - 3 weeks Tobacco Use Start: Unknown Patient is a current 1 ppd, rolls his own smoker, smokes every day cigarettes. Smoking Status Reviewed: 04/16/19 Patient is a current 1 ppd, rolls his own smoker, smokes every day cigarettes. Allergies, Adverse Reactions, Alerts Description No Known Drug Allergies Medications Active Medications SIG Qnty Indications Ordering Date Provider Prednisone take 4 tab daily x 20tabs M54.5 Mehdi Carias, TERESO 04/16/2019 10mg 2 days then 3 tab Tablets daily x 2 days, then 2 tab daily for 2 day, and 1 tab for 2 day. Baclofen take 1/2-1 tab 20tabs M54.5 Mehdi Carias, TERESO 04/16/2019 10mg Tablets every 8 hours as needed for muscle spasm Glipizide ER One po daily 30tabs Gertrudis Urrutia, 11/04/2018 10mg N.P. Tablets ER 24HR Fluticasone 1 spray each 16units J30.9 Gertrudis Urrutia, 10/30/2018 Propionate nostril daily as N.P. 50mcg/Act needed Suspension Flovent HFA 2 puffs twice 12gm J45.901 Gertrudis Urrutia, 10/30/2018 daily N.P. 110mcg/Act Aerosol Chantix Starting take as directed 30tabs F17.210 Gertrudis Urrutia, 10/30/2018 Month Darrell (0.5 mg by mouth N.P. 0.5mg X 11 daily x3 days, 0.5 & 1 mg X 42 Tablets mg twice a day x 4 days, then 1 mg twice a day up to three months) Ventolin HFA 1 to 2 inhalations 18units [...] Gabapentin Take One Tablet By 90tabs Gertrudis Varmeaghan, 03/08/2017 800mg Mouth Three Times N.P. Tablets A Day Omeprazole Take One Capsule 90caps Gertrudis Ghada, 03/08/2017 40mg By Mouth Every Day N.P. Capsules DR Thiamine HCL one by mouth daily 30tabs Tim Naranjo, 03/07/2016 100mg (not taking) REHAB SPECIALIST Tablets Folic Acid 1 by mouth every 30tabs Tim Naranjo, 03/07/2016 1mg day (not taking) REHAB SPECIALIST Tablets Ciclopirox apply to affected 6.6units B35.1 Gertrudis Richardsmeaghan, 03/01/2016 8% toenails and N.P. Solution surrounding skin at bedtime Multi Vitamin Daily 1 tab po qd (not 30tabs Tim Naranjo, 12/11/2014 taking) REHAB SPECIALIST Tablets Hydroxyzine HCL take one to two 60tabs F41.9 Gertrudis Richardsmeaghan, 12/07/2010 50mg tablets by mouth N.P. Tablets three times a day as needed Immunizations CPT Code Status Date Vaccine Lot # [id number] Given 05/13/2018 Influenza Virus Vaccine, Quadrivalent, Split, Preservative Free [id number] Given 05/13/2018 Pneumococcal Conjugate Vaccine 13 Valent For Intramuscular Use 92639 Given 06/30/2014 Tdap - Tetanus/Diptheria/Acellular Pertussis 3p9cl Vital Signs Date Vital Result Comment 04/16/2019 8:39am Height 68.5 inches 5'8.50" Weight 220.00 lb Heart Rate 60 /min BP Systolic 111 mmHg BP Diastolic 70 mmHg Body Temperature 96.9 F O2 % BldC Oximetry 95 % BMI (Body Mass Index) 33.0 kg/m2 11/20/2018 3:43pm Height 68.5 inches 5'8.50" Weight 209.50 lb Heart Rate 71 /min BP Systolic 129 mmHg BP Diastolic 83 mmHg Body Temperature 98.6 F O2 % BldC Oximetry 95 % BMI (Body Mass Index) 31.4 kg/m2 Results Description No Information Available Procedures Date Code Description Status 03/16/2017 [id number] Diabetic Retinal Eye Exam Completed Medical Devices Description No Information Available Encounters Type Date Location Provider Dx Diagnosis Office Visit 11/20/2018 [facility] Gertrudis Urrutia, M54.5 Low back pain 3:40p Medicine - [facility] N.P. F17.210 Nicotine dependence, cigarettes, uncomplicated Office Visit 10/30/2018 10:40a [facility] Gertrudis Richardsn, J30.9 Allergic rhinitis, Medicine - N.P. unspecified [facility] J45.901 Unspecified asthma with (acute) exacerbation F17.210 Nicotine dependence, cigarettes, uncomplicated Assessments Date Code Description Provider 04/16/2019 M54.5 Low back pain Mehdi Carias, REHAB SPECIALIST 11/20/2018 M54.5 Low back pain Gertrudis Varn, N.P. 11/20/2018 F17.210 Nicotine dependence, cigarettes, uncomplicated Gertrudis Varn, N.P. 10/30/2018 J30.9 Allergic rhinitis, unspecified Gertrudis Varn, N.P. 10/30/2018 J45.901 Unspecified asthma with (acute) exacerbation Gertrudis Varn, N.P. 10/30/2018 F17.210 Nicotine dependence, cigarettes, uncomplicated Gertrudis Varn, N.P. Plan of Treatment 04/16/2019 - Mehdi Carias, TERESOM54.5 Low back painNew Medication:Prednisone 10 mg - take 4 tab daily x 2 days then 3 tab daily x 2 days, then 2 tab daily for 2 day , and 1 tab for 2 day.Baclofen 10 mg - take 1/2-1 tab every 8 hours as needed for muscle spasmNew Therapy:Physical TherapyComments:It is important to have the xray of your back done soon.I recommend using heat to the area frequently. Stop taking the Celebrex while you are taking the prednisone and then restart after completing theprednisone.Try using the Baclofen. This may make you tired. It is important to attend physical therapy as was ordered previously.Follow up :with MV PRN Functional Status Description No Information Available Mental Status Description No Information Available Referrals Description No Information Available
--- OUTSIDE RECORDS SUMMARY | 2019-05-23 07:10 | XMS REPORT | Continuity of Care Document ---
:1965 External Reference #:[id number] Author Name Gertrudis Urrutia NGrant (transmitted by agent of provider Gilma Allen) Address [address] [facility], [place] [address] Care Team Providers Name Role Phone Lupe Howe MD - Internal Care Team Information Pallet Repairer Medicine Gertrudis Urrutia NP - Family Care Team Information Pallet Repairer [phone] Brown Monk MD - Ophthalmology Care Team Information Pallet Repairer Problems Active Problems Provider Date Chronic obstructive [...] smokes every day cigarettes. Smoking Status Reviewed: 04/29/19 Patient is a current 1 ppd, rolls his own smoker, smokes every day cigarettes. Allergies, Adverse Reactions, Alerts Description No Known Drug Allergies Medications Active Medications SIG Qnty Indications Ordering Date Provider Prednisone 4 tablets by mouth 40tabs J45.901 Gertrudis Richardsmeaghan, 04/29/2019 10mg for 4 days,3 N.P. Tablets tablets by mouth for 4 days, 2 tablets by mouth for 4 days, 1 tablet by mouth for 4 days Benzonatate one by mouth three 30caps J45.901 Gertrudis Richardsmeaghan, 04/29/2019 200mg times daily as N.P. Capsules needed for cough Tramadol HCL 1 tablet three 21tabs M54.5 Gertrudis Richardsn, 04/29/2019 50mg times daily as N.P. Tablets needed Fluticasone 2 sprays each 16gm J45.901 Gertrudis Richardsmeaghan, 04/29/2019 Propionate nostril daily as N.P. 50mcg/Act needed Suspension Baclofen take 1/2-1 tab 20tabs M54.5 Mehdi Carias, COR[employer]ER'S JUROR 04/16/2019 10mg Tablets every 8 hours as needed for muscle spasm Glipizide ER One po daily 30tabs Gertrudis Richardsmeaghan, 11/04/2018 10mg N.P. Tablets ER 24HR Fluticasone 1 spray each 16units J30.9 Gertrudis Richardsmeaghan, 10/30/2018 Propionate nostril daily as N.P. 50mcg/Act needed Suspension Flovent HFA 2 puffs twice 12gm J45.901 Gertrudis Richardsmeaghan, 10/30/2018 daily N.P. 110mcg/Act Aerosol Ventolin HFA 1 to 2 inhalations 18units Gertrudis Ghada, 05/22/2018 every 4 hours as N.P. 108(90Base) mcg/Act needed Aerosol Onetouch Ultra Blue test twice a day 100units E11.9 Gertrudis Urrutia, 2016 and as needed N.P. Strips Onetouch Ultrasoft test blood 2-3 a 100units E11.9 Gertrudis Urrutia, 2016 Lancets day or as needed N.P. Misc Onetouch Ultra Mini check cs twice 1units E11.9 [place] 08/01/2017 daily Yessy Amado w/Device Kit Atorvastatin Calcium take one tablet by 30tabs Gertrudis Urrutia, 04/16/2017 mouth at bedtime N.P. 20mg Tablets Celecoxib one by mouth twice 60caps M54.5 Gertrudis Richardsmeaghan, 04/06/2017 100mg a day N.P. Capsules Gabapentin Take One Tablet By 90tabs Gertrudis Richardsmeaghan, 03/08/2017 800mg Mouth Three Times N.P. Tablets A Day Omeprazole Take One Capsule 90caps Gertrudis Richardsmeaghan, 03/08/2017 40mg By Mouth Every Day N.P. Capsules DR Gradypisalazar apply to affected 6.6units B35.1 Gertrudis Richardsmeaghan, 03/01/2016 8% toenails and N.P. Solution surrounding skin at bedtime Hydroxyzine HCL take one to two 60tabs F41.9 Gertrudis Richardsmeaghan, 12/07/2010 50mg tablets by mouth N.P. Tablets three times a day as needed History Medications Naproxen one po bid 60tabs M54.5 Gertrudis Ghada, 04/29/2019 - 500mg N.P. 04/29/2019 Tablets Prednisone take 4 tab daily 20tabs M54.5 Mehdi Carias NP 04/16/2019 - 10mg x 2 days then 3 04/23/2019 Tablets tab daily x 2 days, then 2 tab daily for 2 day, and 1 tab for 2 day. Chantix Starting take as directed 30tabs F17.210 Gertrudis Richardsmeaghan, 2018 - Month Darrell (0.5 mg by mouth N.P. 04/29/2019 0.5mg X daily x3 days, 11 & 1 mg X 42 0.5 mg twice a Tablets day x 4 days, then 1 mg twice a day up to three months) Immunizations CPT Code Status Date Vaccine Lot # [id number] Given 05/13/2018 Influenza Virus Vaccine, Quadrivalent, Split, Preservative Free [id number] Given 05/13/2018 Pneumococcal Conjugate Vaccine 13 Valent For Intramuscular Use 14145 Given 06/30/2014 Tdap - Tetanus/Diptheria/Acellular Pertussis 3p9cl Vital Signs Date Vital Result Comment 04/29/2019 2:43pm Height 68.5 inches 5'8.50" Weight 216.00 lb Heart Rate 77 /min BP Systolic 136 mmHg Ra sitting BP Diastolic 92 mmHg Ra sitting Body Temperature 98.7 F O2 % BldC Oximetry 94 % BMI (Body Mass Index) 32.4 kg/m2 04/16/2019 8:39am Height 68.5 inches 5'8.50" Weight 220.00 lb Heart Rate 60 /min BP Systolic 111 mmHg BP Diastolic 70 mmHg Body Temperature 96.9 F O2 % BldC Oximetry 95 % BMI (Body Mass Index) 33.0 kg/m2 Results Description No Information Available Procedures Date Code Description Status 03/16/2017 [id number] Diabetic Retinal Eye Exam Completed Medical Devices Description No Information Available Encounters Type Date Location Provider Dx Diagnosis Office Visit 04/16/2019 [facility] Internal Mehdi Carias NP M54.5 Low back pain 8:40a Medicine - [facility] Office Visit 11/20/2018 [facility] Internal Gertrudis Urrutia M54.5 Low back pain 3:40p Medicine - [facility] N.P. F17.210 Nicotine dependence, cigarettes, uncomplicated Office Visit 10/30/2018 10:40a [facility] Internal Gertrudis Varn, J30.9 Allergic rhinitis, Medicine - N.P. unspecified [facility] J45.901 Unspecified asthma with (acute) exacerbation F17.210 Nicotine dependence, cigarettes, uncomplicated Assessments Date Code Description Provider 04/29/2019 J45.901 Unspecified asthma with (acute) exacerbation Gertrudis Varn, N.P. 04/29/2019 M54.5 Low back pain Gertrudis Varn, N.P. 04/16/2019 M54.5 Low back pain Mehdi Jv, CORONER'S JUROR 11/20/2018 M54.5 Low back pain Gertrudis Varn, N.P. 11/20/2018 F17.210 Nicotine dependence, cigarettes, uncomplicated Gertrudis Varn, N.P. 10/30/2018 J30.9 Allergic rhinitis, unspecified Gertrudis Varn, N.P. 10/30/2018 J45.901 Unspecified asthma with (acute) exacerbation Gertrudis Varn, N.P. 10/30/2018 F17.210 Nicotine dependence, cigarettes, uncomplicated Gertrudis Varn, N.P. Plan of Treatment 04/29/2019 - Gertrudis Varn, N.P.J45.901 Unspecified asthma with (acute) exacerbationNew Medication:Prednisone 10 mg - 4 tablets by mouth for 4 days,3 tablets by mouth for 4 days, 2 tablets by mouth for 4 days, 1 tablet by mouth for 4 daysBenzonatate 200 mg - one by mouth three times daily as needed for coughFluticasone Propionate 50 mcg/Act - 2 sprays each nostril daily as neededComments:For your cough and asthma I have prescribed a Flovent inhaler use 2 inhalations, twice daily. I havealso refilled your Ventolin to use as needed.For your sinus congestion I have prescribed Fluticasonenasal spray. Use 2 inhalation is each nostril, once daily.I have prescribed Prednisone 10 mg. Take 4tablets for 4 days, 3 tablets for 4 days, 2 tablets for 4 days, take 1 tablet for 4 days.I encourageyou to quit smoking.If this does not help, please contact the office.M54.5 Low back painNew Medication:Tramadol HCL 50 mg - 1 tablet three times daily as neededNaproxen 500 mg - one po bidComments:I have sent a prescription in for a muscle relaxant. You may find this sedating. If so , just take itat bedtime. You are having back spasms, take your Baclofen every 8 hours. Continue to take Gabapentin 800 mg, every 8 hours. To help you with your pain I have prescribed Tramadol 50 mg. You may take 1 every 8 hours as needed. Continue to take Celebrex. Functional Status Description No Information Available Mental Status Description No Information Available Referrals Description No Information Available
[2019-05-23 07:14] LABS: ABS Eosinophils 0.1 10^3/ul (0-0.6); ABS Lymphocytes 1.3 10^3/ul (1.0-4.8); ABS Monocytes 0.6 10^3/ul (0-0.8); ABS Neutrophils 4.9 10^3/ul (1.5-7.7); Eosinophil % 0.9 %; Hematocrit 47 % (42-52); Lymphocyte % 19.2 %; Mean Corpuscular HGB Conc 34 g/dL (31-36); Mean Corpuscular Hemoglobin 30 pg (27-31); Mean Corpuscular Volume 87 fL (80-94); Mean Platelet Volume 8.2 fL (7.4-10.4); Nucleated Red Blood Cells % 0.2; Platelet Count 197 10^3/uL (150-450); Red Blood Count 5.38 10^6 /uL (4.18-5.48); Red Cell Distribution Width 13 % (10-15); White Blood Count 6.9 10^3/uL (3.5-10.8)
[2019-05-23] MEDS ORDERED: Lidocaine 2% VISCOUS* 15 ML UDC PO ONE (07:20)
[2019-05-23] MEDS ORDERED: Al Hydrox/Mg Hydrox/Simet LIQ* 30 ML UDC PO ONE (07:20)
[2019-05-23] MEDS ORDERED: Nicotine PATCH 21 MG/24 HR* PATCH TRANSDERM ONE (07:20)
[2019-05-23 07:33] LABS: ALT 17 U/L (7-52); AST 17 U/L (13-39); Albumin 4.3 g/dL (3.2-5.2); Albumin/Globulin Ratio 1.4 (1-3); Alkaline Phosphatase 104 U/L (34-104); Anion Gap 8 mmol/L (2-11); BUN/Creatinine Ratio 13.8 (8-20); Blood Urea Nitrogen 12 mg/dL (6-24); C Reactive Protein 4.28 mg/L (<8.01); CO2 Carbon Dioxide 26 mmol/L (22-32); Calcium 9.5 mg/dL (8.6-10.3); Chloride 101 mmol/L (101-111); EGFR African American 111.9 (>60); EGFR Non-African American 92.5 (>60); Globulin 3.1 g/dL (2-4); Glucose 143 mg/dL (70-100); Sodium 135 mmol/L (135-145); Total Protein 7.4 g/dL (6.4-8.9)
[2019-05-23 07:34] LABS: Troponin I 0.01 ng/mL (<0.04)
[2019-05-23 07:53] LABS: Urine Appearance Clear; Urine Bilirubin Negative (Negative); Urine Blood Negative (Negative); Urine Color Yellow; Urine Glucose Negative (Negative); Urine Ketones Trace (Negative); Urine Nitrite Negative (Negative); Urine Protein Negative (Negative); Urine Specific Gravity 1.017 (1.010-1.030); Urine Urobilinogen Negative (Negative)
[2019-05-23] MEDS ORDERED: Iodixanol* (CONTRAST) 320 MG/ML 100 ML SDV IV ONE (08:04)
[2019-05-23 10:03] VITALS: BP 146/94
== END 2019-05-23 10:03 | disposition home or self-care (01) ==
LOC: ED 06:32
DX: R11.2 Nausea with vomiting, unspecified (principal); R14.0 Abdominal distension (gaseous); N28.1 Cyst of kidney, acquired; K76.0 Fatty (change of) liver, not elsewhere classified; K21.9 Gastro-esophageal reflux disease without esophagitis; E11.9 Type 2 diabetes mellitus without complications; J44.9 Chronic obstructive pulmonary disease, unspecified; E78.5 Hyperlipidemia, unspecified; F41.9 Anxiety disorder, unspecified; F32.9 Major depressive disorder, single episode, unspecified; F10.20 Alcohol dependence, uncomplicated; F17.210 Nicotine dependence, cigarettes, uncomplicated; Z79.84 Long term (current) use of oral hypoglycemic drugs; Z79.51 Long term (current) use of inhaled steroids; Z79.899 Other long term (current) drug therapy
CPT/HCPCS: 36415; 74177; 80053; 81003; 83605; 83690; 84484; 85025; 86140; 93005; 96361; 96374; 96376; 99283; A9270-GY; J2405; Q9967